=== PATIENT | male | born 1970 | race Caucasian/White ===

== ENCOUNTER 2021-02-16 21:03 | Inpatient (IN) ==
[2021-02-16 21:45] LABS: Hematocrit (blood only) 38.5 % (42-52); Hemoglobin 13.6 g/dL (14.0-18.0); Mean Corpuscular Hemoglobin 28.6 pg (25-34); Mean Corpuscular Hgb Conc 35.3 g/dL (32-36); Mean Corpuscular Volume 80.9 fL (80-100); Mean Platelet Volume 11.4 fL (7.4-10.4); Platelet Count 158 K/uL (130-400); RDW Coefficient of Variation 13.1 % (11.5-14.5); RDW Standard Deviation 39.3 fL (36.4-46.3); Red Blood Count 4.76 M/uL (4.7-6.1)
[2021-02-16 22:04] LABS: Alanine Aminotransferase 76 U/L (12-78); Albumin Level 2.8 gm/dl (3.4-5.0); Aspartate Aminotransferase 146 U/L (15-37); BUN Creatinine Ratio 14.6 (10-20); Blood Urea Nitrogen 14 mg/dl (7-18); Calcium 8.7 mg/dl (8.5-10.1); Carbon Dioxide 21 mmol/L (21-32); Chloride 91 mmol/L (98-107); Creatinine Clr Calc Pharmacy 114.6 ml/min; Est GFR (African American) 103.9 ml/min; Est GFR (Non-African American) 89.7 ml/min; Glucose 230 mg/dl (70-99); Potassium 3.4 mmol/L (3.5-5.1); Sodium 128 mmol/L (136-145)
[2021-02-16 22:07] LABS: Albumin Globulin Ratio 0.6 (0.9-2); Alkaline Phosphatase 72 U/L (45-117); Bilirubin,Total 0.8 mg/dl (0.2-1); Globulin 4.3 gm/dl (2.5-4.0); Total Protein 7.1 gm/dl (6.4-8.2)
[2021-02-16] MEDS ORDERED: KETOROLAC TROMETHAMINE 15 MG/ML VIAL IV STA (22:07)
[2021-02-16] MEDS ORDERED: ACETAMINOPHEN 500 MG TAB PO STA (22:07)
[2021-02-16] MEDS ORDERED: dexAMETHasone**PF** 10 MG/ML VIAL IV ONE (22:07)
[2021-02-16 22:15] LABS: Immature Granulocytes # (auto) 0.02 K/uL (0.00-0.02); Immature Granulocytes % (auto) 0.3 %; Lymphocytes # (auto) 0.41 K/uL (1.2-3.4); Lymphocytes % (auto) 6.5 %; Monocytes # (auto) 0.46 K/uL (0.11-0.59); Monocytes % (auto) 7.3 %; Neutrophils # (auto) 5.41 K/uL (1.4-6.5); Neutrophils % (auto) 85.9 %; Polychromasia 1+
[2021-02-16] MEDS ORDERED: SODIUM CHLORIDE 0.9% 1000ML 1,000 ML IV SCH (22:15)
[2021-02-16 22:18] LABS: Magnesium 2.4 mg/dl (1.8-2.4)
[2021-02-16 22:25] LABS: INR 1.1 (0.9-1.1); Partial Thromboplastin Ratio 1.2; Prothrombin Time 11.1 Seconds (9.0-12.0)
[2021-02-16 22:29] LABS: Troponin I < 0.015 ng/ml (0-0.045)
--- NOTE | 2021-02-16 23:13 | Emergency Department Note ---
History of Present Illness General Chief complaint: Illness Stated complaint: ILLNESS Time Seen by Provider: 02/16/21 21:48 History of Present Illness Maximum Pain Intensity: 6 This 50-year-old unvaccinated for COVID-19 presents to the ER complaining of flu like illness Location: Generalized Quality: Hard to breathe Severity: Moderate Duration: Past few days Timing: Started 8 days ago Context: Patient's pulse ox dropped below 90 and came in Modifying factors: better with rest; worse with activity patient states he bought a home pulse ox monitor and notices pulse ox is low as he is having problems breathing. Patient complains of fever, chills, body aches difficulty breathing and coughing. Patient denies abdominal pain, vomiting, diarrhea. Home Medications Medication Instructions Recorded Confirmed Type multivitamin (Daily Multi-Vitamin) 1 tab PO DAILY 12/22/18 02/16/21 History hydrochlorothiazide 25 mg tablet 25 mg PO DAILY #90 tab 12/22/20 02/16/21 Rx Allergies Allergy/AdvReac Type Severity Reaction Status Date / Time levofloxacin Allergy Unknown Unknown Verified 02/16/21 22:51 Past Med/Surg History Medical History (Updated 02/16/21 @ 23:13 by Holli Hernandez PA-C) High blood pressure Surgical History (Updated 02/16/21 @ 23:06 by Holli Hernandez PA-C) No pertinent past surgical history Social History Smoking Status: Never smoker Feels Safe at Home: Yes Review of Systems A total of 10 systems reviewed and were otherwise negative Physical Exam Vital Signs Vital Signs - 24 hr 02/16/21 21:30 02/16/21 21:35 02/16/21 21:40 Temperature 39.3 C H Temperature Source Oral Pulse Rate 119 H 118 H 119 H Pulse Rate from SpO2 Sensor 118 H 119 H Respiratory Rate 20 Blood Pressure 142/98 H Blood Pressure Mean 112 Pulse Oximetry 90 93 92 Oxygen Delivery Method Room Air Sepsis Recent Fever Within 48 Hours Yes Sepsis New/Unexplained Change in Mental Status N/A Sepsis Action Taken by Nursing No Action Required 02/16/21 21:50 02/16/21 22:00 02/16/21 22:10 Temperature Temperature Source Pulse Rate 117 H 117 H 117 H Pulse Rate from SpO2 Sensor 117 H 118 H 118 H Respiratory Rate Blood Pressure Blood Pressure Mean Pulse Oximetry 94 93 94 Oxygen Delivery Method Sepsis Recent Fever Within 48 Hours Sepsis New/Unexplained Change in Mental Status Sepsis Action Taken by Nursing 02/16/21 22:20 02/16/21 22:30 02/16/21 22:40 Temperature Temperature Source Pulse Rate 116 H 114 H 117 H Pulse Rate from SpO2 Sensor 116 H 115 H 116 H Respiratory Rate 24 Blood Pressure Blood Pressure Mean Pulse Oximetry 93 92 93 Oxygen Delivery Method Sepsis Recent Fever Within 48 Hours Sepsis New/Unexplained Change in Mental Status Sepsis Action Taken by Nursing 02/16/21 22:50 02/16/21 23:00 02/16/21 23:30 Temperature Temperature Source Pulse Rate 112 H 112 H 112 H Pulse Rate from SpO2 Sensor 112 H 112 H 111 H Respiratory Rate 31 H 20 Blood Pressure Blood Pressure Mean Pulse Oximetry 92 92 95 Oxygen Delivery Method Sepsis Recent Fever Within 48 Hours Sepsis New/Unexplained Change in Mental Status Sepsis Action Taken by Nursing VITALS: Vitals are noted on the nurse's note and reviewed by myself. Vital signs sats 92% on nasal cannula. GENERAL: White male ill-appearing, SKIN: The skin was without rashes, erythema, edema, or bruising. There is no tenting of the skin. Capillary reflex less than 2 seconds. HEAD: Normocephalic atraumatic. EARS: External auditory canals clear, tympanic membranes pearly lopez without erythema or effusion bilaterally. EYES: Pupils equal round and reactive to light and accommodation. Conjunctivae without injection, sclerae without icterus. Extraocular movements intact. NOSE: Patent, turbinates without inflammation or discharge. No sinus tenderness. MOUTH: Mucous membranes mildly dry. Pharynx without erythema or exudate. Uvula midline. Airway patent. Tongue does not deviate. NECK: Supple without nuchal rigidity. No lymphadenopathy. No thyromegaly. Cervical spine is nontender. No JVD. HEART: Regular rate and rhythm LUNGS: Mild diffuse end expiratory wheezes, without rales or rhonchi. No retractions or accessory muscle use. ABDOMEN: Positive bowel sounds x 4. Normal tympanic percussion. Soft, nontender, without masses or organomegaly. Sellers sign negative. No guarding or rebound tenderness. No CVA tenderness MUSCULOSKELETAL: No muscle atrophy, erythema, or edema noted. NEURO: Patient was alert and oriented to person place and time. Normal sensation to light and sharp touch. No focal neurological deficits. Course Administered Medications Discontinued Medications Acetaminophen (Acetaminophen 500 Mg Tab) 1,000 mg PO NOW STA Stop: 02/16/21 22:08 Last Admin: 02/16/21 22:50 Dose: 1,000 mg Documented by: [id number] Dexamethasone Sodium Phosphate (DexamethasonePf 10 Mg/Ml Vial) 6 mg IV NOW ONE Stop: 02/16/21 22:08 Last Admin: 02/16/21 22:50 Dose: 6 mg Documented by: [id number] Sodium Chloride (Nss 1000ml) 1,000 mls @ 999 mls/hr IV .Q1H1M GAURAV Stop: 02/16/21 23:15 Last Admin: 02/16/21 22:50 Dose: 999 mls/hr Documented by: [id number] Ketorolac Tromethamine (Ketorolac Tromethamine 15 Mg/Ml Vial) 10 mg IV NOW STA Stop: 02/16/21 22:08 Last Admin: 02/16/21 22:50 Dose: 10 mg Documented by: [id number] Medical Decision Making Medical Records Attestation: I reviewed the patient's medical records. Home Medications Current Medication List: was personally reviewed by me Laboratory Data Attestation: I reviewed the patient's lab results. Result diagrams: 02/16/21 21:11 02/16/21 21:11 Lab Results 02/16/21 02/16/21 02/16/21 Range/Units 21:11 21:11 21:18 WBC 6.30 (4.8-10.8) K/uL RBC 4.76 (4.7-6.1) M/uL Hgb 13.6 L (14.0-18.0) g/dL Hct 38.5 L (42-52) % MCV 80.9 (80-100) fL MCH 28.6 (25-34) pg MCHC 35.3 (32-36) g/dL RDW Std Deviation 39.3 (36.4-46.3) fL RDW Coeff of William 13.1 (11.5-14.5) % Plt Count 158 (130-400) K/uL MPV 11.4 H (7.4-10.4) fL Immature Gran % (Auto) 0.3 % Neut % (Auto) 85.9 % Lymph % (Auto) 6.5 % [place] % (Auto) 7.3 % Eos % (Auto) 0.0 % Baso % (Auto) 0.0 % Neut # (Auto) 5.41 (1.4-6.5) K/uL Lymph # (Auto) 0.41 L (1.2-3.4) K/uL [place] # (Auto) 0.46 (0.11-0.59) K/uL Eos # (Auto) 0.00 (0-0.5) K/uL Baso # (Auto) 0.00 (0-0.2) K/uL Immature Gran # (Auto) 0.02 (0.00-0.02) K/uL Polychromasia 1+ PT 11.1 (9.0-12.0) Seconds INR 1.1 (0.9-1.1) APTT 32.0 H (21.0-31.0) Seconds PTT Ratio 1.2 Sodium 128 L (136-145) mmol/L Potassium 3.4 L (3.5-5.1) mmol/L Chloride 91 L (98-107) mmol/L Carbon Dioxide 21 (21-32) mmol/L Anion Gap 15.0 H (3-11) BUN 14 (7-18) mg/dl Creatinine 0.99 (0.6-1.4) mg/dl Est Cr Clr Drug Dosing 114.6 ml/min Est GFR ( Amer) 103.9 ml/min Est GFR (Non-Af Amer) 89.7 ml/min BUN/Creatinine Ratio 14.6 (10-20) Glucose 230 H (70-99) mg/dl Lactate (0.4-2.0) mmol/L Calcium 8.7 (8.5-10.1) mg/dl Magnesium 2.4 (1.8-2.4) mg/dl Total Bilirubin 0.8 (0.2-1) mg/dl AST 146 H (15-37) U/L ALT 76 (12-78) U/L Alkaline Phosphatase 72 (45-117) U/L Troponin I < 0.015 (0-0.045) ng/ml Total Protein 7.1 (6.4-8.2) gm/dl Albumin 2.8 L (3.4-5.0) gm/dl Globulin 4.3 H (2.5-4.0) gm/dl Albumin/Globulin Ratio 0.6 L (0.9-2) COVID-19 Eval Order SARS-CoV-2 (PCR) (Negative) 02/16/21 02/16/21 02/16/21 Range/Units 21:18 21:18 22:40 WBC (4.8-10.8) K/uL RBC (4.7-6.1) M/uL Hgb (14.0-18.0) g/dL Hct (42-52) % MCV (80-100) fL MCH (25-34) pg MCHC (32-36) g/dL RDW Std Deviation (36.4-46.3) fL RDW Coeff of William (11.5-14.5) % Plt Count (130-400) K/uL MPV (7.4-10.4) fL Immature Gran % (Auto) % Neut % (Auto) % Lymph % (Auto) % [place] % (Auto) % Eos % (Auto) % Baso % (Auto) % Neut # (Auto) (1.4-6.5) K/uL Lymph # (Auto) (1.2-3.4) K/uL [place] # (Auto) (0.11-0.59) K/uL Eos # (Auto) (0-0.5) K/uL Baso # (Auto) (0-0.2) K/uL Immature Gran # (Auto) (0.00-0.02) K/uL Polychromasia PT (9.0-12.0) Seconds INR (0.9-1.1) APTT (21.0-31.0) Seconds PTT Ratio Sodium (136-145) mmol/L Potassium (3.5-5.1) mmol/L Chloride (98-107) mmol/L Carbon Dioxide (21-32) mmol/L Anion Gap (3-11) BUN (7-18) mg/dl Creatinine (0.6-1.4) mg/dl Est Cr Clr Drug Dosing ml/min Est GFR ( Amer) ml/min Est GFR (Non-Af Amer) ml/min BUN/Creatinine Ratio (10-20) Glucose (70-99) mg/dl Lactate 1.3 (0.4-2.0) mmol/L Calcium (8.5-10.1) mg/dl Magnesium (1.8-2.4) mg/dl Total Bilirubin (0.2-1) mg/dl AST (15-37) U/L ALT (12-78) U/L Alkaline Phosphatase (45-117) U/L Troponin I (0-0.045) ng/ml Total Protein (6.4-8.2) gm/dl Albumin (3.4-5.0) gm/dl Globulin (2.5-4.0) gm/dl Albumin/Globulin Ratio (0.9-2) COVID-19 Eval Order Covid19 at [facility] SARS-CoV-2 (PCR) POSITIVE A* (Negative) Imaging Data Attestation: I personally reviewed and interpreted this imaging study as follows: MDM Narrative Prior records/ancillary studies reviewed. Triage Nursing notes reviewed. Additional history obtained from nursing. The patient's history was concerning for fever. Differential diagnosis: Etiologies such as viral syndrome, otitis, pharyngitis, pneumonia, influenza, meningitis, urinary tract infection, sepsis, bacteremia, as well as others were entertained. Physical examination: As above ER treatment provided: An order was placed for continuous cardiac monitoring. The monitor shows a rate of 60-1 50 with a sinus rhythm. IV fluids, Tylenol, Toradol, Decadron On reassessment the patient felt better. Diagnostics interpreted by me: ECG: Ordered for dyspnea EKG: I think arrhythmia is unlikely. EKG shows normal sinus rhythm with no interval abnormalities such as QT prolongation or WPW. There are no findings to suggest Brugada syndrome. Cardiac monitoring in the emergency department reveals no tachycardic or bradycardic dysrhythmia. Hypertrophic cardiomyopathy was considered but there are no clear historical elements pointing toward this. EKG is not suggestive. The QRS voltage is not extremely large and there are no suggestive Q waves. The labs revealed no worrisome leukocytosis Blood cultures pending = covid Imaging studies: Chest x-ray concerning for multifocal pneumonia most consistent with Covid Consultation: A consultation was placed with hospitalist. The case was discussed and diagnostics were reviewed. The patient was evaluated in the ER for further treatment. This appears to be consistent with Covid pneumonia who is hypoxic on room air. Patient is given Decadron. Has been sick for 8 days. Medicine is consulted. He will be admitted. Patient is agreeable. By the evaluation outlined above emergent etiologies such as otitis, pharyngitis, meningitis, urinary tract infection, sepsis, bacteremia, as well as others were deemed relatively unlikely. The pt informed about the findings as listed above. All questions were answered and pleased with the treatment. The chart was completed utilizing [employer] Speech voice recognition software. Grammatical errors, random word insertions, pronoun errors, and incomplete sentences are an occassional consequence of this system due to software limitations, ambient noise, and hardware issues. Any formal questions or concerns about the content, text, or information contained within the body of this dictation should be directly addressed to the physician seed laboratory assistant for clarification. Impression & Plan COVID-19 Discharge Plan Visit Data Chief Complaint: Illness Stated Complaint: ILLNESS ED Provider: Howard Sharif ED Midlevel Provider: Holli Hernandez Discharge Problem: COVID-19 Patient Disposition: Admitted As Inpatient Condition: Fair Forms Stand Alone Forms: [facility] Prescriptions Prescriptions: No Action hydrochlorothiazide 25 mg tablet 25 mg PO DAILY Qty: 90 RF: 3 multivitamin [Daily Multi-Vitamin] tablet 1 tab PO DAILY RF: 0 Referrals Referrals: Colby Sanchez Jr, [Physician] -
[2021-02-17] MEDS ORDERED: POTASSIUM CHLORIDE CRTAB 20 MEQ TABCR PO STA (00:44)
[2021-02-17] MEDS ORDERED: POTASSIUM CHLORIDE CRTAB 20 MEQ TABCR PO SCH (00:44)
--- NOTE | 2021-02-17 00:45 | History & Physical Report ---
Date of Service February 17, 2021 Assessment & Plan (1) COVID-19: Plan: 50-year-old male with history of hypertension, most likely undiagnosed diabetes presenting with with COVID-19 pneumonia and hypoxia. Patient has been experiencing symptoms for approximately 8 days. Saturations 90% on arrival, now improved to 95% on 4 L nasal cannula. Risk factors for severe disease include underlying hypertension and possibly diabetes. Admit to medical Maintain isolation precautions for COVID-19 Dexamethasone 6 mg IV daily Supplemental oxygen as needed to maintain saturations greater than 92% Patient prefers to hold off on remdesivir at this time Lovenox 40 twice daily Tylenol, Tessalon, Mucinex Continue to monitor (2) High blood pressure: Plan: Patient with elevated blood pressure = 150/95 currently Continue hydrochlorothiazide 25 mg p.o. daily Continue to monitor (3) Elevated blood sugar: Plan: Patient reports that he checks his blood sugar occasionally at home and it is often in the upper 100s and sometimes over 200. He states he is quite thirsty Fingerstick with insulin coverage Check hemoglobin A1c (4) Nephrolithiasis: Plan: Patient with history of uric acid nephrolithiasis Continue hydrochlorothiazide History of Present Illness Chief Complaint: Covid-19 PNA, hypoxia Primary Care Provider: Diana Blackmon MD Shine Thomas is a 50yo male with history of hypertension, elevated blood sugar readings (no formal diagnosis of diabetes as of yet, patient states he monitors his sugars at home and sometimes are over 200) as well as uric acid nephrolithiasis presenting with COVID-19 pneumonia. Patient states that he developed symptoms consisting of cough, shortness of breath, fever, nausea, vomiting, body aches and diarrhea approximately 8 days ago. Patient has been monitoring his saturations at home and they have been low in the upper 80s. Upon arrival patient febrile at 39.3, tachycardic at 112, respiratory rate of 20 saturating 90% on room air. Covid test is POSITIVE ER course: Tylenol, dexamethasone, Toradol, normal saline Allergies Allergy/AdvReac Type Severity Reaction Status Date / Time levofloxacin Allergy Unknown Unknown Verified 02/16/21 22:51 Home Medications Medication Instructions Recorded Confirmed Type multivitamin (Daily Multi-Vitamin) 1 tab PO DAILY 12/22/18 02/16/21 History hydrochlorothiazide 25 mg tablet 25 mg PO DAILY #90 tab 12/22/20 02/16/21 Rx Past Med/Surg History Medical History (Updated 02/17/21 @ 03:07 by La Collazo DO) High blood pressure Surgical History (Updated 02/16/21 @ 23:06 by Holli Hernandez PA-C) No pertinent past surgical history Social History Smoking Status: Never smoker Do You Dip or Chew Tobacco: No; Hx Alcohol Use: Yes Hx Substance Use: No Preferred Language: Libyan Communication Ability: Effective Appraiser Required: No Beliefs That Will Affect Care: None Current Living Situation: Alone Other Information That Helps Us Care for You: No Feels Safe at Home: Yes Safety Concerns: Feels Safe At This Time Assistive Devices: Glasses and Oxygen - Continuous Review of Systems Review of Systems: All systems reviewed & are unremarkable except as noted in HPI & below + Fever, chills, body aches, cough, shortness of breath, nausea, vomiting, diarrhea Physical Exam Physical Exam: General: patient resting comfortably, NAD, non-toxic in appearance, AA&O x 4, + cough Skin: warm, dry, intact, no rashes or lesions HEENT: NC/AT, PERRL, EOMI, anicteric sclera, conjunctiva without injection, external ear normal to inspection and nontender, nares patent, moist mucus membranes, dentition intact, no oropharyngeal lesions, neck supple, trachea midline, no LAD, no thyromegaly, no JVD Heart: +S1/S2, regular, no m/r/g Lungs: equal air entry bilaterally, no rales/rhonchi/wheezes Abd: +BS, soft, NT/ND, no masses/organomegaly/ascites Ext: warm, 2+ pulses in UE/LE bilaterally, no clubbing/cyanosis or edema Neuro: nonfocal, patient AA&O x 4, speech intact, no facial droop, moving all extremities on command with equal strength 5/5 Results & Data Results & Data (MN) Vital Signs (Past 12 Hours) Vital Signs Temp Pulse Resp BP Pulse Ox 02/16/21 23:30 112 H 20 95 02/16/21 23:00 112 H 31 H 92 02/16/21 22:50 112 H 92 02/16/21 22:40 117 H 24 93 02/16/21 22:30 114 H 92 02/16/21 22:20 116 H 93 02/16/21 22:10 117 H 94 02/16/21 22:00 117 H 93 02/16/21 21:50 117 H 94 02/16/21 21:40 119 H 92 02/16/21 21:35 118 H 93 02/16/21 21:30 39.3 C H 119 H 20 142/98 H 90 Laboratory Results Laboratory Results WBC 6.30 K/uL (4.8-10.8) 02/16/21 21:11 RBC 4.76 M/uL (4.7-6.1) 02/16/21 21:11 Hgb 13.6 g/dL (14.0-18.0) L 02/16/21 21:11 Hct 38.5 % (42-52) L 02/16/21 21:11 MCV 80.9 fL (80-100) 02/16/21 21:11 MCH 28.6 pg (25-34) 02/16/21 21:11 MCHC 35.3 g/dL (32-36) 02/16/21 21:11 RDW Std Deviation 39.3 fL (36.4-46.3) 02/16/21 21:11 RDW Coeff of William 13.1 % (11.5-14.5) 02/16/21 21:11 Plt Count 158 K/uL (130-400) 02/16/21 21:11 MPV 11.4 fL (7.4-10.4) H 02/16/21 21:11 Immature Gran % (Auto) 0.3 % 02/16/21 21:11 Neut % (Auto) 85.9 % 02/16/21 21:11 Lymph % (Auto) 6.5 % 02/16/21 21:11 [place] % (Auto) 7.3 % 02/16/21 21:11 Eos % (Auto) 0.0 % 02/16/21 21:11 Baso % (Auto) 0.0 % 02/16/21 21:11 Neut # (Auto) 5.41 K/uL (1.4-6.5) 02/16/21 21:11 Lymph # (Auto) 0.41 K/uL (1.2-3.4) L 02/16/21 21:11 [place] # (Auto) 0.46 K/uL (0.11-0.59) 02/16/21 21:11 Eos # (Auto) 0.00 K/uL (0-0.5) 02/16/21 21:11 Baso # (Auto) 0.00 K/uL (0-0.2) 02/16/21 21:11 Immature Gran # (Auto) 0.02 K/uL (0.00-0.02) 02/16/21 21:11 Polychromasia 1+ 02/16/21 21:11 PT 11.1 Seconds (9.0-12.0) 02/16/21:18 INR 1.1 (0.9-1.1) 02/16/21 21:18 APTT 32.0 Seconds (21.0-31.0) H 02/16/21 21:18 PTT Ratio 1.2 02/16/21 21:18 Sodium 128 mmol/L (136-145) L 02/16/21 21:11 Potassium 3.4 mmol/L (3.5-5.1) L 02/16/21 21:11 Chloride 91 mmol/L (98-107) L 02/16/21 21:11 Carbon Dioxide 21 mmol/L (21-32) 02/16/21 21:11 Anion Gap 15.0 (3-11) H 02/16/21 21:11 BUN 14 mg/dl (7-18) 02/16/21 21:11 Creatinine 0.99 mg/dl (0.6-1.4) 02/16/21 21:11 Est Cr Clr Drug Dosing 114.6 ml/min 02/16/21 21:11 Est GFR ( Amer) 103.9 ml/min 02/16/21 21:11 Est GFR (Non-Af Amer) 89.7 ml/min 02/16/21 21:11 BUN/Creatinine Ratio 14.6 (10-20) 02/16/21 21:11 Glucose 230 mg/dl (70-99) H 02/16/21 21:11 Lactate 1.3 mmol/L (0.4-2.0) 02/16/21 22:40 Calcium 8.7 mg/dl (8.5-10.1) 02/16/21 21:11 Magnesium 2.4 mg/dl (1.8-2.4) 02/16/21 21:11 Total Bilirubin 0.8 mg/dl (0.2-1) 02/16/21 21:11 AST 146 U/L (15-37) H 02/16/21 21:11 ALT 76 U/L (12-78) 02/16/21 21:11 Alkaline Phosphatase 72 U/L (45-117) 02/16/21 21:11 Lactate Dehydrogenase 1035 U/L (87-241) H 02/16/21 21:11 Troponin I < 0.015 ng/ml (0-0.045) 02/16/21 21:11 C-Reactive Protein 25.30 mg/dl (0-0.29) H 02/16/21 21:11 NT-Pro-B Natriuret Pep 84 pg/ml (0-450) 02/16/21 21:11 Total Protein 7.1 gm/dl (6.4-8.2) 02/16/21 21:11 Albumin 2.8 gm/dl (3.4-5.0) L 02/16/21 21:11 Globulin 4.3 gm/dl (2.5-4.0) H 02/16/21 21:11 Albumin/Globulin Ratio 0.6 (0.9-2) L 02/16/21 21:11 COVID-19 Eval Order Covid19 at [facility] 02/16/21 21:18 SARS-CoV-2 (PCR) POSITIVE (Negative) A* 02/16/21 21:18 Diagnostic Findings Chest x-ray: By my interpretationpatient with diffuse bilateral airspace opacities worse in lower lung ge[place] Code Status & VTE Plan VTE Prophylaxis Plan VTE Prophylaxis will be ordered: Yes PG Care Time/CCT Total # of Minutes Spent Total Time Spent with Patient: Total time spent is greater than 50% in coordination of care (as documented) at patient's floor/unit and/or counseling patient: Coding Level of Care Code 16626 Initial Inpt Care Lvl 2 Diagnoses COVID-19 U07.1 High blood pressure I10 Elevated blood sugar R73.9 Nephrolithiasis N20.0
[2021-02-17] MEDS ORDERED: SODIUM CHLORIDE 0.9% 1000ML 1,000 ML IV SCH ×2 (01:59→15:00)
[2021-02-17] MEDS ORDERED: ONDANSETRON INJ 2 MG/ML 2 ML VIAL IV PRN (01:59)
[2021-02-17] MEDS ORDERED: ACETAMINOPHEN 325 MG TAB PO PRN (01:59)
[2021-02-17] MEDS ORDERED: BENZONATATE 100 MG CAPSULE PO PRN (01:59)
[2021-02-17 02:22] LABS: NT Pro B Type Natriuretic Pept 84 pg/ml (0-450)
[2021-02-17] MEDS ORDERED: GLUCAGON FOR INJ 1 MG VIAL IM PRN (02:45)
[2021-02-17] MEDS ORDERED: GLUCOSE 10 TABS/TUBE PO PRN (02:45)
[2021-02-17] MEDS ORDERED: CARBOHYDRATES FOR HYPOGLYCEMIA PO PRN (02:45)
[2021-02-17] MEDS ORDERED: DEXTROSE 50% 50 ML SYRINGE IV PRN (02:45)
[2021-02-17] MEDS ORDERED: GLUCOSE 40% GEL 15 GM TUBE PO PRN (02:45)
[2021-02-17] MEDS: INSULIN ASPART 100 UNITS/ML 3 ML PEN SC SCH ×5 (03:09→21:20)
[2021-02-17 07:26] LABS: Estimated Average Glucose 217 mg/dl; Hemoglobin A1C 9.2 % (4.5-5.6)
[2021-02-17 07:37] LABS: Appearance Urine Clear (Clear); Bacteria Urine Automated Negative (Negative); Bilirubin Urine Negative (Negative); Blood Urine 2+ (Negative); Color Urine Yellow; Epithelial Cell Urine Auto 0-5 /lpf (0-5); Glucose Urine UA 2+ (Negative); Ketones Urine 4+ (Negative); Leukocyte Esterase Urine Negative (Negative); Nitrite Urine Negative (Negative); Protein Urine 2+ (Negative); RBC Urine Automated 0-4 /hpf (0-4); Specific Gravity Urine 1.021 (1.000-1.030); Urobilinogen Urine Negative (Negative); WBC Urine Automated 0 /hpf (0-5)
--- NOTE | 2021-02-17 08:03 | XRay Report ---
XR chest 1V portable HISTORY: SEPSIS COMPARISON: None. FINDINGS: No pneumothorax. No pleural effusions. The heart is normal in size. Multifocal patchy airsp yunior opacities seen within the lungs most pronounced within the lower lung zones. This is consistent w ith a viral pneumonia. IMPRESSION: Multifocal bilateral airspace opacities consistent with a viral pneumonia. ACT 112: Negative or not required by law. Electronically signed by: Nawaf Mckeon M.D. 02/17/2021 8:01 AM
[2021-02-17] MEDS ORDERED: INSULIN GLARGINE SOLOSTAR 100 UNITS/ML 3 ML PEN SC SCH (09:00)
[2021-02-17] MEDS ORDERED: ENOXAPARIN INJ 40 MG/0.4 ML SYR SQ SCH (09:00)
[2021-02-17] MEDS: hydroCHLOROthiazide 25 MG TAB PO SCH (09:30)
[2021-02-17] MEDS: guaiFENesin 600 MG TABCR PO SCH ×2 (09:31→20:01)
[2021-02-17] MEDS: ENOXAPARIN INJ 60 MG/0.6 ML SYR SQ SCH ×2 (09:32→20:00)
[2021-02-17] MEDS: dexAMETHasone 6 MG in SYRINGE 0 ML IV SCH (10:14)
[2021-02-17] MEDS ORDERED: ALBUTEROL HFA 8 GM INHALER INH ONE (13:29)
[2021-02-17 14:20] LABS: BUN Creatinine Ratio 17.3 (10-20); Calcium 8.2 mg/dl (8.5-10.1); Est GFR (African American) 117.2 ml/min; Est GFR (Non-African American) 101.1 ml/min; Potassium 3.8 mmol/L (3.5-5.1)
[2021-02-17 14:41] LABS: Beta-Hydroxybutyrate 34.07 mg/dl (0.2-2.81)
[2021-02-17] MEDS ORDERED: REMDESIVIR 200 MG in SODIUM CHLORIDE 0.9% 210 ML IV ONE (15:15)
[2021-02-17] MEDS ORDERED: SODIUM CHLORIDE 0.9% 10ML FLUSH IV SCH (17:15)
--- NOTE | 2021-02-17 17:48 | Electrocardiogram Report ---
Test Reason : Blood Pressure : / mmHG Vent. Rate : 123 BPM Atrial Rate : 123 BPM P-R Int : 142 ms QRS Dur : 090 ms QT Int : 322 ms P-R-T Axes : 032 066 046 degrees QTc Int : 460 ms Sinus tachycardia Otherwise normal ECG No previous ECGs available Confirmed by Diaz Hauser ([id number]) on 02/17/2021 5:48:03 PM Referred By: REFERRED SELF Confirmed By:Bryan Hauser
--- NOTE | 2021-02-17 19:50 | Hospitalist Progress Note ---
Date of Service February 17, 2021 Assessment & Plan (1) Pneumonia due to COVID-19 virus: (2) Acute respiratory failure with hypoxia: (3) Diabetes mellitus type 2, uncontrolled: (4) Rhabdomyolysis due to COVID-19: (5) Hyponatremia: (6) Elevated C-reactive protein (CRP): (7) Hypokalemia: (8) DVT prophylaxis: Plan: 1. 1 L of NS for rhabdo. 2. Initiate Remdesivir 200mg today, then 100mg daily days 2-5. 3. discussed proning, flutter, incentive. 4. serial labs. 5. discussed DM diagnosis. 6. start lantus BID; adjust novolog. offered to update family - he declined Admission and Anticipated Discharge Date Admission Date: February 17, 2021 Subjective patient reports fatigue, poor appetite, impaired taste/smell, cough with mild sputum, dyspnea on exertion and simply feeling poorly. we discussed his new dx of diabetes. he had declined Remdesivir at admission - we discussed risks/benefits - he is willing to initiate. Physical Exam Physical Exam: gen - obese, NAD, coughing neck - no JVD mouth - MM dry heart - RRR, s1 s2, no murmur lungs - bibasilar rales, minimal end-exp wheeze, no increased work of breathing abd - soft NT ND BS+ ext - no edema Results & Data Results & Data ([facility]) Vital Signs (Past 12 Hours) Vital Signs Temp Pulse Resp BP Pulse Ox 02/17/21 18:36 37 C 02/17/21 14:45 37.0 C 96 H 18 147/84 H 97 02/17/21 13:59 94 H 20 96 Laboratory Results Laboratory Results - last 24 hr 02/16/21 02/16/21 02/16/21 21:11 21:11 21:11 WBC 6.30 RBC 4.76 Hgb 13.6 L Hct 38.5 L MCV 80.9 MCH 28.6 MCHC 35.3 RDW Std Deviation 39.3 RDW Coeff of William 13.1 Plt Count 158 MPV 11.4 H Immature Gran % (Auto) 0.3 Neut % (Auto) 85.9 Lymph % (Auto) 6.5 [place] % (Auto) 7.3 Eos % (Auto) 0.0 Baso % (Auto) 0.0 Neut # (Auto) 5.41 Lymph # (Auto) 0.41 L [place] # (Auto) 0.46 Eos # (Auto) 0.00 Baso # (Auto) 0.00 Immature Gran # (Auto) 0.02 Polychromasia 1+ PT INR APTT PTT Ratio Sodium 128 L Potassium 3.4 L Chloride 91 L Carbon Dioxide 21 Anion Gap 15.0 H BUN 14 Creatinine 0.99 Est Cr Clr Drug Dosing 114.6 Est GFR ( Amer) 103.9 Est GFR (Non-Af Amer) 89.7 BUN/Creatinine Ratio 14.6 Glucose 230 H POC Glucose Estimat Average Glucose 217 Hemoglobin A1c 9.2 H Lactate Calcium 8.7 Magnesium 2.4 Total Bilirubin 0.8 AST 146 H ALT 76 Alkaline Phosphatase 72 Lactate Dehydrogenase Total Creatine Kinase Troponin I < 0.015 C-Reactive Protein 25.30 H NT-Pro-B Natriuret Pep 84 Total Protein 7.1 Albumin 2.8 L Globulin 4.3 H Albumin/Globulin Ratio 0.6 L Beta-Hydroxybutyric Acd Urine Color Urine Appearance Urine pH Ur Specific [place] Urine Protein Urine Glucose (UA) Urine Ketones Urine Blood Urine Nitrite Urine Bilirubin Urine Urobilinogen Ur Leukocyte Esterase Urine WBC (Auto) Urine RBC (Auto) U Hyaline Cast (Auto) U Epithel Cells (Auto) Urine Bacteria (Auto) COVID-19 Eval Order SARS-CoV-2 (PCR) 02/16/21 02/16/21 02/16/21 21:11 21:18 21:18 WBC RBC Hgb Hct MCV MCH MCHC RDW Std Deviation RDW Coeff of William Plt Count MPV Immature Gran % (Auto) Neut % (Auto) Lymph % (Auto) [place] % (Auto) Eos % (Auto) Baso % (Auto) Neut # (Auto) Lymph # (Auto) [place] # (Auto) Eos # (Auto) Baso # (Auto) Immature Gran # (Auto) Polychromasia PT 11.1 INR 1.1 APTT 32.0 H PTT Ratio 1.2 Sodium Potassium Chloride Carbon Dioxide Anion Gap BUN Creatinine Est Cr Clr Drug Dosing Est GFR ( Amer) Est GFR (Non-Af Amer) BUN/Creatinine Ratio Glucose POC Glucose Estimat Average Glucose Hemoglobin A1c Lactate Calcium Magnesium Total Bilirubin AST ALT Alkaline Phosphatase Lactate Dehydrogenase 1035 H Total Creatine Kinase Troponin I C-Reactive Protein NT-Pro-B Natriuret Pep Total Protein Albumin Globulin Albumin/Globulin Ratio Beta-Hydroxybutyric Acd Urine Color Urine Appearance Urine pH Ur Specific [place] Urine Protein Urine Glucose (UA) Urine Ketones Urine Blood Urine Nitrite Urine Bilirubin Urine Urobilinogen Ur Leukocyte Esterase Urine WBC (Auto) Urine RBC (Auto) U Hyaline Cast (Auto) U Epithel Cells (Auto) Urine Bacteria (Auto) COVID-19 Eval Order Covid19 at [facility] SARS-CoV-2 (PCR) 02/16/21 02/16/21 02/17/21 21:18 22:40 08:10 WBC RBC Hgb Hct MCV MCH MCHC RDW Std Deviation RDW Coeff of William Plt Count MPV Immature Gran % (Auto) Neut % (Auto) Lymph % (Auto) [place] % (Auto) Eos % (Auto) Baso % (Auto) Neut # (Auto) Lymph # (Auto) [place] # (Auto) Eos # (Auto) Baso # (Auto) Immature Gran # (Auto) Polychromasia PT INR APTT PTT Ratio Sodium Potassium Chloride Carbon Dioxide Anion Gap BUN Creatinine Est Cr Clr Drug Dosing Est GFR ( Amer) Est GFR (Non-Af Amer) BUN/Creatinine Ratio Glucose POC Glucose 307 H* Estimat Average Glucose Hemoglobin A1c Lactate 1.3 Calcium Magnesium Total Bilirubin AST ALT Alkaline Phosphatase Lactate Dehydrogenase Total Creatine Kinase Troponin I C-Reactive Protein NT-Pro-B Natriuret Pep Total Protein Albumin Globulin Albumin/Globulin Ratio Beta-Hydroxybutyric Acd Urine Color Urine Appearance Urine pH Ur Specific [place] Urine Protein Urine Glucose (UA) Urine Ketones Urine Blood Urine Nitrite Urine Bilirubin Urine Urobilinogen Ur Leukocyte Esterase Urine WBC (Auto) Urine RBC (Auto) U Hyaline Cast (Auto) U Epithel Cells (Auto) Urine Bacteria (Auto) COVID-19 Eval Order SARS-CoV-2 (PCR) POSITIVE A* 02/17/21 02/17/21 02/17/21 08:11 12:12 12:13 WBC RBC Hgb Hct MCV MCH MCHC RDW Std Deviation RDW Coeff of William Plt Count MPV Immature Gran % (Auto) Neut % (Auto) Lymph % (Auto) [place] % (Auto) Eos % (Auto) Baso % (Auto) Neut # (Auto) Lymph # (Auto) [place] # (Auto) Eos # (Auto) Baso # (Auto) Immature Gran # (Auto) Polychromasia PT INR APTT PTT Ratio Sodium Potassium Chloride Carbon Dioxide Anion Gap BUN Creatinine Est Cr Clr Drug Dosing Est GFR ( Amer) Est GFR (Non-Af Amer) BUN/Creatinine Ratio Glucose POC Glucose 323 H* 310 H* 323 H* Estimat Average Glucose Hemoglobin A1c Lactate Calcium Magnesium Total Bilirubin AST ALT Alkaline Phosphatase Lactate Dehydrogenase Total Creatine Kinase Troponin I C-Reactive Protein NT-Pro-B Natriuret Pep Total Protein Albumin Globulin Albumin/Globulin Ratio Beta-Hydroxybutyric Acd Urine Color Urine Appearance Urine pH Ur Specific [place] Urine Protein Urine Glucose (UA) Urine Ketones Urine Blood Urine Nitrite Urine Bilirubin Urine Urobilinogen Ur Leukocyte Esterase Urine WBC (Auto) Urine RBC (Auto) U Hyaline Cast (Auto) U Epithel Cells (Auto) Urine Bacteria (Auto) COVID-19 Eval Order SARS-CoV-2 (PCR) 02/17/21 02/17/21 02/17/21 13:26 17:23 Unknown WBC RBC Hgb Hct MCV MCH MCHC RDW Std Deviation RDW Coeff of William Plt Count MPV Immature Gran % (Auto) Neut % (Auto) Lymph % (Auto) [place] % (Auto) Eos % (Auto) Baso % (Auto) Neut # (Auto) Lymph # (Auto) [place] # (Auto) Eos # (Auto) Baso # (Auto) Immature Gran # (Auto) Polychromasia PT INR APTT PTT Ratio Sodium 131 L Potassium 3.8 Chloride 99 Carbon Dioxide 20 L Anion Gap 12.0 H BUN 15 Creatinine 0.89 Est Cr Clr Drug Dosing 125.0 Est GFR ( Amer) 117.2 Est GFR (Non-Af Amer) 101.1 BUN/Creatinine Ratio 17.3 Glucose 325 H* POC Glucose 280 H Estimat Average Glucose Hemoglobin A1c Lactate Calcium 8.2 L Magnesium Total Bilirubin AST 124 H ALT 76 Alkaline Phosphatase Lactate Dehydrogenase Total Creatine Kinase 2955 H Troponin I C-Reactive Protein NT-Pro-B Natriuret Pep Total Protein Albumin Globulin Albumin/Globulin Ratio Beta-Hydroxybutyric Acd 34.07 H Urine Color Yellow Urine Appearance Clear Urine pH 6.0 Ur Specific [place] 1.021 Urine Protein 2+ H Urine Glucose (UA) 2+ H Urine Ketones 4+ H Urine Blood 2+ H Urine Nitrite Negative Urine Bilirubin Negative Urine Urobilinogen Negative Ur Leukocyte Esterase Negative Urine WBC (Auto) 0 Urine RBC (Auto) 0-4 U Hyaline Cast (Auto) 1-5 U Epithel Cells (Auto) 0-5 Urine Bacteria (Auto) Negative COVID-19 Eval Order SARS-CoV-2 (PCR) PG Care Time/CCT Total # of Minutes Spent Total Time Spent with Patient: Total time spent is greater than 50% in coordination of care (as documented) at patient's floor/unit and/or counseling patient: Coding Level of Care Code None Diagnoses Pneumonia due to COVID-19 virus U07.1; J12.82 Acute respiratory failure with hypoxia J96.01 Diabetes mellitus type 2, uncontrolled E11.65 Rhabdomyolysis due to COVID-19 U07.1; M62.82 Hyponatremia E87.1 Elevated C-reactive protein (CRP) R79.82 Hypokalemia E87.6 DVT prophylaxis Z29.9
[2021-02-17] MEDS: INSULIN GLARGINE SOLOSTAR 100 UNITS/ML 3 ML PEN SC SCH (21:21)
[2021-02-18] MEDS ORDERED: PHARMACY GLYCEMIC MGMT CONSULT PRN (00:30)
[2021-02-18] MEDS: INSULIN ASPART 100 UNITS/ML 3 ML PEN SC SCH ×6 (01:38→21:28)
[2021-02-18 05:54] LABS: Hematocrit (blood only) 34.3 % (42-52); Hemoglobin 12.3 g/dL (14.0-18.0); Mean Corpuscular Hemoglobin 29.3 pg (25-34); Mean Corpuscular Hgb Conc 35.9 g/dL (32-36); Mean Corpuscular Volume 81.7 fL (80-100); Mean Platelet Volume 10.6 fL (7.4-10.4); Platelet Count 185 K/uL (130-400); RDW Coefficient of Variation 13.1 % (11.5-14.5); RDW Standard Deviation 39.6 fL (36.4-46.3); White Blood Count 9.43 K/uL (4.8-10.8)
[2021-02-18 06:13] LABS: Basophils # (auto) 0.01 K/uL (0-0.2); Basophils % (auto) 0.1 %; Immature Granulocytes # (auto) 0.07 K/uL (0.00-0.02); Immature Granulocytes % (auto) 0.7 %; Lymphocytes % (auto) 7.4 %; Monocytes # (auto) 0.72 K/uL (0.11-0.59); Monocytes % (auto) 7.6 %; Neutrophils # (auto) 7.93 K/uL (1.4-6.5); Neutrophils % (auto) 84.2 %
[2021-02-18 06:20] LABS: Albumin Level 2.2 gm/dl (3.4-5.0); BUN Creatinine Ratio 19.4 (10-20); Bilirubin Direct 0.1 mg/dl (0-0.2); Creatinine Clr Calc Pharmacy 137.4 ml/min; Est GFR (African American) 121.8 ml/min; Est GFR (Non-African American) 105.1 ml/min; Potassium 3.2 mmol/L (3.5-5.1)
[2021-02-18 06:26] LABS: Bilirubin,Total 0.5 mg/dl (0.2-1); Total Protein 5.8 gm/dl (6.4-8.2)
--- NOTE | 2021-02-18 09:07 | Pharmacy Report ---
Pharmacy Glycemic Short Note 2 - Date of Service February 18, 2021 - Glycemic Short BSG Results (Last 24 hours): 02/17/21 02/17/21 02/17/21 12:12 12:13 13:26 Glucose 325 H* POC Glucose 310 H* 323 H* 02/17/21 02/17/21 02/17/21 17:23 21:09 21:11 Glucose POC Glucose 280 H 313 H* 305 H* 02/18/21 02/18/21 02/18/21 00:00 01:36 04:42 Glucose POC Glucose 226 H 223 H 189 H 02/18/21 02/18/21 05:30 08:27 Glucose 179 H POC Glucose 197 H OUTPATIENT ANTIDIABETIC REGIMEN: * N/A * A1c = 9.2% on 02/16/21 which is diagnostic for diabetes ASSESSMENT: * 50yo male - newly diagnosed diabetes diabetes per A1c * Pt with SEVERE sustained hyperglycemia secondary to undiagnosed diabetes, illness (COVID), and high dose steroids with dexamethasone IV daily * Start weight based SQ basal bolus insulin regimen (Lantus + NovoLog) for baseline insulin resistance * Add weight based NPH for steroid induced hyperglycemia (0.4 units/kg) * Titrate based on BSG trends to achieve goal BSGs 110-140 mg/dl PLAN FOR INPATIENT GLYCEMIC CONTROL: * Basal insulin * Lantus 20 units SQ BID * Steroid induced hyperglycemia * NPH 40 units (~0.4 units/kg) SQ daily with dexamethasone * Bolus insulin * NovoLog per scale ACHS or Q6hrs while NPO * Goal Range: Low 100 mg/dL - High 140 mg/dL * Correction Factor: 20 mg/dL/unit * Nutritional / Prandial insulin per carb ratio of 1 unit per 7 grams CHO consumed PLAN FOR DISCHARGE: * A1c = 9.2% on 02/16/21 * Goal A1c < 7% based on age/co-morbidities * A1c is between 8% and 10% consider dual combination therapy * Metformin + additional agent listed below. * Metformin should be started at the time type 2 diabetes is diagnosed unless there are contraindications. Metformin is effective and safe, is inexpensive, and may reduce risk of cardiovascular events and . * Recommend starting: Metformin XR 500mg PO daily with evening meal. Typically the XR formulation of metformin is better tolerated than the immediate release formulation. Continue to titrate metformin dosing upwards as recommended. Dosage increases should be made in increments of 500 mg weekly, up to 2,000 mg/day PO, given in divided doses. Doses above 2000 mg/day may be better tolerated if divided and given 3 times per day with meals. Max: 2,550 mg/day PO, in divided doses * B12 supplementation may be necessary with mcc metformin use * Compelling need to minimize weight gain or promote weight loss: * GLP-1 receptor agonist: Decreases major adverse cardiovascular events, high efficacy, low hypo risk, weight loss, significant GI side effects (titrate low and slow) and risk of thyroid tumors, high cost * SGLT2 inhibitor: Decreases major adverse cardiovascular events, intermediate efficacy, low hypo risk, weight loss, /dehydration and risk of amputation (canagliflozin) side effects, high cost * Support Patient Self-Management * Healthy Lifestyle (diet, exercise, and smoking cessation) * Disease self-management (SMBG) * Prevention of complications (BP, Lipid goals, Immunizations) * Consider outpatient Diabetes Self-Management Education & Support
[2021-02-18] MEDS: INSULIN GLARGINE SOLOSTAR 100 UNITS/ML 3 ML PEN SC SCH ×2 (09:43→21:28)
[2021-02-18] MEDS: INSULIN HUMAN NPH SC SCH (09:43)
[2021-02-18] MEDS: ENOXAPARIN INJ 60 MG/0.6 ML SYR SQ SCH ×2 (09:47→21:27)
[2021-02-18] MEDS: guaiFENesin 600 MG TABCR PO SCH ×2 (09:48→21:27)
[2021-02-18] MEDS: dexAMETHasone 6 MG in SYRINGE 0 ML IV SCH (09:48)
[2021-02-18] MEDS: hydroCHLOROthiazide 25 MG TAB PO SCH (09:48)
[2021-02-18] MEDS: POTASSIUM CHLORIDE CRTAB 20 MEQ TABCR PO SCH ×3 (10:34→21:28)
[2021-02-18] MEDS: REMDESIVIR 100 MG in SODIUM CHLORIDE 0.9% 230 ML IV SCH (11:10)
[2021-02-18] MEDS: SODIUM CHLORIDE 0.9% 10ML FLUSH IV SCH (12:17)
--- NOTE | 2021-02-18 22:06 | Hospitalist Progress Note ---
Date of Service February 18, 2021 Assessment & Plan (1) Pneumonia due to COVID-19 virus: Plan: moderate disease with very high inflammatory markers. day #3 of dexamethasone 6mg IV. day #2 Remdesivir. cont pulm toilet, proning, etc. recheck CRP am. he is about 9 days into the illness. (2) Acute respiratory failure with hypoxia: Plan: 2nd to #1. no evidence of complicating CHF or bacterial superinfection. (3) Diabetes mellitus type 2, uncontrolled: Plan: new dx. adjust lantus. adjust novolog. a1c - 9.2%. will need DM education, etc. DM diet. (4) Rhabdomyolysis due to COVID-19: Plan: s/p 1 L of fluid yesterday. repeat CPK in am. (5) Hyponatremia: Plan: improving. now 134. bmp in am. was 2nd to HCTZ, poor oral intake, etc (6) Elevated C-reactive protein (CRP): Plan: 2nd to #1 repeat am (7) Hypokalemia: Plan: replace repeat level am (8) DVT prophylaxis: Plan: lovenox 50mg BID (~0.5mg/kg BID) Plan: updated pt's Aunt by phone this evening Admission and Anticipated Discharge Date Admission Date: February 17, 2021 Subjective pt feels similar or scantly better vs yesterday cough, dyspnea unchanged still poor appetite taste/smell impaired no chest pain no abd pain does not have myalgias but is VERY weak Review of Systems Review of Systems: gen - no fevers or chills; VERY weak ENT - congested, hoarse voice, impaired taste/smell CV - no orthopnea GI - no N/V - voiding fine Physical Exam Physical Exam: gen - obese, NAD mouth - MMM ENT - hoarse voice remains neck - no JVD heart - RRR, s1 s2, no murmur lungs - bibasilar rales - no change abd - soft NT ND BS+ ext - no edema, pulses 2+ b/l Results & Data Results & Data ([facility]) Vital Signs (Past 12 Hours) Vital Signs Temp Pulse Resp BP Pulse Ox 02/18/21 17:41 37.1 C 80 18 128/81 97 Laboratory Results Laboratory Results - last 24 hr 02/18/21 02/18/21 02/18/21 00:00 01:36 04:42 WBC RBC Hgb Hct MCV MCH MCHC RDW Std Deviation RDW Coeff of William Plt Count MPV Immature Gran % (Auto) Neut % (Auto) Lymph % (Auto) [place] % (Auto) Eos % (Auto) Baso % (Auto) Neut # (Auto) Lymph # (Auto) [place] # (Auto) Eos # (Auto) Baso # (Auto) Immature Gran # (Auto) Sodium Potassium Chloride Carbon Dioxide Anion Gap BUN Creatinine Est Cr Clr Drug Dosing Est GFR ( Amer) Est GFR (Non-Af Amer) BUN/Creatinine Ratio Glucose POC Glucose 226 H 223 H 189 H Calcium Total Bilirubin Direct Bilirubin AST ALT Alkaline Phosphatase Total Protein Albumin 02/18/21 02/18/21 02/18/21 05:30 05:30 08:27 WBC 9.43 RBC 4.20 L Hgb 12.3 L Hct 34.3 L MCV 81.7 MCH 29.3 MCHC 35.9 RDW Std Deviation 39.6 RDW Coeff of William 13.1 Plt Count 185 MPV 10.6 H Immature Gran % (Auto) 0.7 Neut % (Auto) 84.2 Lymph % (Auto) 7.4 [place] % (Auto) 7.6 Eos % (Auto) 0.0 Baso % (Auto) 0.1 Neut # (Auto) 7.93 H Lymph # (Auto) 0.70 L [place] # (Auto) 0.72 H Eos # (Auto) 0.00 Baso # (Auto) 0.01 Immature Gran # (Auto) 0.07 H Sodium 134 L Potassium 3.2 L D Chloride 102 Carbon Dioxide 24 Anion Gap 8.0 BUN 16 Creatinine 0.81 Est Cr Clr Drug Dosing 137.4 Est GFR ( Amer) 121.8 Est GFR (Non-Af Amer) 105.1 BUN/Creatinine Ratio 19.4 Glucose 179 H POC Glucose 197 H Calcium 8.0 L Total Bilirubin 0.5 Direct Bilirubin 0.1 AST 101 H ALT 69 Alkaline Phosphatase 63 Total Protein 5.8 L Albumin 2.2 L 02/18/21 02/18/21 02/18/21 12:21 17:39 21:22 WBC RBC Hgb Hct MCV MCH MCHC RDW Std Deviation RDW Coeff of William Plt Count MPV Immature Gran % (Auto) Neut % (Auto) Lymph % (Auto) [place] % (Auto) Eos % (Auto) Baso % (Auto) Neut # (Auto) Lymph # (Auto) [place] # (Auto) Eos # (Auto) Baso # (Auto) Immature Gran # (Auto) Sodium Potassium Chloride Carbon Dioxide Anion Gap BUN Creatinine Est Cr Clr Drug Dosing Est GFR ( Amer) Est GFR (Non-Af Amer) BUN/Creatinine Ratio Glucose POC Glucose 237 H 186 H 182 H Calcium Total Bilirubin Direct Bilirubin AST ALT Alkaline Phosphatase Total Protein Albumin PG Care Time/CCT Total # of Minutes Spent Total Time Spent with Patient: Total time spent is greater than 50% in coordination of care (as documented) at patient's floor/unit and/or counseling patient: Coding Level of Care Code 03533 Subseq Hosp Care Lvl 3 Diagnoses Pneumonia due to COVID-19 virus U07.1; J12.82 Acute respiratory failure with hypoxia J96.01 Diabetes mellitus type 2, uncontrolled E11.65 Rhabdomyolysis due to COVID-19 U07.1; M62.82 Hyponatremia E87.1 Elevated C-reactive protein (CRP) R79.82 Hypokalemia E87.6 DVT prophylaxis Z29.9
[2021-02-19 06:38] LABS: Hematocrit (blood only) 36.4 % (42-52); Hemoglobin 12.8 g/dL (14.0-18.0); Mean Corpuscular Hgb Conc 35.2 g/dL (32-36); Mean Corpuscular Volume 82.5 fL (80-100); Mean Platelet Volume 10.8 fL (7.4-10.4); Platelet Count 240 K/uL (130-400); RDW Coefficient of Variation 13.3 % (11.5-14.5); RDW Standard Deviation 40.3 fL (36.4-46.3); Red Blood Count 4.41 M/uL (4.7-6.1); White Blood Count 7.56 K/uL (4.8-10.8)
[2021-02-19 07:20] LABS: BUN Creatinine Ratio 24.6 (10-20); C Reactive Protein 7.13 mg/dl (0-0.29); Calcium 8.1 mg/dl (8.5-10.1); Creatinine Clr Calc Pharmacy 166.1 ml/min; Est GFR (African American) 131.7 ml/min; Est GFR (Non-African American) 113.6 ml/min; Potassium 3.9 mmol/L (3.5-5.1)
[2021-02-19] MEDS: ALBUTEROL HFA 8 GM INHALER INH SCH ×4 (07:53→20:16)
[2021-02-19] MEDS: INSULIN ASPART 100 UNITS/ML 3 ML PEN SC SCH ×4 (09:27→21:17)
[2021-02-19] MEDS: dexAMETHasone 6 MG in SYRINGE 0 ML IV SCH (09:29)
[2021-02-19] MEDS: ENOXAPARIN INJ 60 MG/0.6 ML SYR SQ SCH ×2 (09:30→20:31)
[2021-02-19] MEDS: guaiFENesin 600 MG TABCR PO SCH ×2 (09:30→20:31)
[2021-02-19] MEDS: hydroCHLOROthiazide 25 MG TAB PO SCH (09:31)
[2021-02-19] MEDS: INSULIN HUMAN NPH SC SCH (09:31)
[2021-02-19] MEDS: INSULIN GLARGINE SOLOSTAR 100 UNITS/ML 3 ML PEN SC SCH ×2 (09:31→21:03)
--- NOTE | 2021-02-19 10:34 | Pharmacy Report ---
Pharmacy Glycemic Short Note 2 - Date of Service February 19, 2021 - Glycemic Short BSG Results (Last 24 hours): 02/18/21 02/18/21 02/18/21 12:21 17:39 21:22 Glucose POC Glucose 237 H 186 H 182 H 02/19/21 02/19/21 06:12 08:10 Glucose 131 H POC Glucose 129 H OUTPATIENT ANTIDIABETIC REGIMEN: * N/A * A1c = 9.2% on 02/16/21 which is diagnostic for diabetes ASSESSMENT: 02/19 * Pt has received 108 units of insulin over the past 24hrs * 40 units of basal with Lantus * 40 units of NPH for steroid induced hyperglycemia * 28 units of bolus with NovoLog * BSGs [phone] mg/dl * BSGs elevated yesterday but it was only the first dose of NPH given for steroid induced hyperglycemia with dex 6mg IV daily * AM fasting BSG much improved today - trending near goal range with Lantus reac mary steady state. * No changes needed today. 02/18 * 50yo male - newly diagnosed diabetes diabetes per A1c * Pt with SEVERE sustained hyperglycemia secondary to undiagnosed diabetes, illness (COVID), and high dose steroids with dexamethasone IV daily * Start weight based SQ basal bolus insulin regimen (Lantus + NovoLog) for baseline insulin resistance * Add weight based NPH for steroid induced hyperglycemia (0.4 units/kg) * Titrate based on BSG trends to achieve goal BSGs 110-140 mg/dl PLAN FOR INPATIENT GLYCEMIC CONTROL: * Basal insulin * Lantus 20 units SQ BID * Steroid induced hyperglycemia * NPH 40 units (~0.4 units/kg) SQ daily with dexamethasone * Bolus insulin * NovoLog per scale ACHS or Q6hrs while NPO * Goal Range: Low 100 mg/dL - High 140 mg/dL * Correction Factor: 15 mg/dL/unit * Nutritional / Prandial insulin per carb ratio of 1 unit per 5 grams CHO consumed PLAN FOR DISCHARGE: * A1c = 9.2% on 02/16/21 * Goal A1c < 7% based on age/co-morbidities * A1c is between 8% and 10% consider dual combination therapy * Metformin + additional agent listed below. * Metformin should be started at the time type 2 diabetes is diagnosed unless there are contraindications. Metformin is effective and safe, is inexpensive, and may reduce risk of cardiovascular events and . * Recommend starting: Metformin XR 500mg PO daily with evening meal. Typically the XR formulation of metformin is better tolerated than the immediate release formulation. Continue to titrate metformin dosing upwards as recommended. Dosage increases should be made in increments of 500 mg weekly, up to 2,000 mg/day PO, given in divided doses. Doses above 2000 mg/day may be better tolerated if divided and given 3 times per day with meals. Max: 2,550 mg/day PO, in divided doses * B12 supplementation may be necessary with tank terminal gauger metformin use * Compelling need to minimize weight gain or promote weight loss: * GLP-1 receptor agonist: Decreases major adverse cardiovascular events, high efficacy, low hypo risk, weight loss, significant GI side effects (titrate low and slow) and risk of thyroid tumors, high cost * SGLT2 inhibitor: Decreases major adverse cardiovascular events, intermediate efficacy, low hypo risk, weight loss, /dehydration and risk of amputation (canagliflozin) side effects, high cost * Support Patient Self-Management * Healthy Lifestyle (diet, exercise, and smoking cessation) * Disease self-management (SMBG) * Prevention of complications (BP, Lipid goals, Immunizations) * Consider outpatient Diabetes Self-Management Education & Support
[2021-02-19] MEDS: REMDESIVIR 100 MG in SODIUM CHLORIDE 0.9% 230 ML IV SCH (11:32)
[2021-02-19] MEDS: SODIUM CHLORIDE 0.9% 10ML FLUSH IV SCH (12:47)
[2021-02-19] MEDS ORDERED: SODIUM CHLORIDE 0.65% NA SOLN 45 ML (OCEAN) PRN (16:00)
[2021-02-19] MEDS: TRIAMCINOLONE ACET NASAL SPRAY 10.8ML BTL NAE SCH (17:39)
--- NOTE | 2021-02-20 06:38 | Hospitalist Progress Note ---
Date of Service February 19, 2021 Assessment & Plan (1) Pneumonia due to COVID-19 virus: Plan: moderate disease with very high inflammatory markers at time of admission but improving. day #4 of dexamethasone 6mg IV. day #3 Remdesivir. cont pulm toilet, proning, etc. CRP improved today (25 --> 7) he is about 10 days into the illness. wean O2 as tolerated. (2) Acute respiratory failure with hypoxia: Plan: 2nd to #1. no evidence of complicating CHF or bacterial superinfection. slow improvement. (3) Diabetes mellitus type 2, uncontrolled: Plan: new dx. adjustments in lantus and novolog have led to better improvement. a1c - 9.2%. will need DM education, etc. DM diet. good candidate for metformin +/- lantus at discharge. (4) Rhabdomyolysis due to COVID-19: Plan: improving CPK in am (5) Hyponatremia: Plan: resolved 128 --> 137. bmp in am. was 2nd to HCTZ, poor oral intake, etc (6) Elevated C-reactive protein (CRP): Plan: 2nd to #1 repeat today MUCH improved (7) Hypokalemia: Plan: replaced and resolved (8) DVT prophylaxis: Plan: lovenox 50mg BID (~0.5mg/kg BID) Plan: updated pt's Aunt by phone yesterday evening pt requested nasocort - this was ordered nasal saline spray also ordered Admission and Anticipated Discharge Date Admission Date: February 17, 2021 Subjective pt overall feels a little better but still with no taste, smell or appetite voice remains hoarse still coughing, largely nonproductive with occasional sputum DOWD same or slightly better feels fatigued Review of Systems Review of Systems: gen - no fevers/chills CV - no cp or orthopnea pulm - no dyspnea at rest GI - no N/V musculo - no myalgias Physical Exam Physical Exam: gen - obese, NAD; o2 was off when I walked in room - o2 sats were high 80s in room air mouth - MMM ENT - hoarse voice unchanged neck - no JVD heart - RRR, s1 s2, no murmur lungs - bibasilar rales - maybe slightly better abd - soft NT ND BS+ ext - no edema, pulses 2+ b/l Results & Data Results & Data ([facility]) Vital Signs (Past 12 Hours) Vital Signs Temp Pulse Resp BP Pulse Ox 02/20/21 02:44 96 02/19/21 23:39 94 02/19/21 22:37 36.8 C 85 16 123/85 96 02/19/21 20:17 85 16 96 Laboratory Results Laboratory Results - last 24 hr 02/19/21 02/19/21 02/19/21 06:12 08:10 12:05 Sodium 137 Potassium 3.9 D Chloride 105 Carbon Dioxide 25 Anion Gap 7.0 BUN 16 Creatinine 0.67 Est Cr Clr Drug Dosing 166.1 Est GFR ( Amer) 131.7 Est GFR (Non-Af Amer) 113.6 BUN/Creatinine Ratio 24.6 H Glucose 131 H POC Glucose 129 H 186 H Calcium 8.1 L AST 81 H ALT 68 Total Creatine Kinase 1073 H C-Reactive Protein 7.13 H 02/19/21 02/19/21 17:06 21:17 Sodium Potassium Chloride Carbon Dioxide Anion Gap BUN Creatinine Est Cr Clr Drug Dosing Est GFR ( Amer) Est GFR (Non-Af Amer) BUN/Creatinine Ratio Glucose POC Glucose 242 H 211 H Calcium AST ALT Total Creatine Kinase C-Reactive Protein PG Care Time/CCT Total # of Minutes Spent Total Time Spent with Patient: Total time spent is greater than 50% in coordination of care (as documented) at patient's floor/unit and/or counseling patient: Coding Level of Care Code 24065 Subseq Hosp Care Lvl 2 Diagnoses Pneumonia due to COVID-19 virus U07.1; J12.82 Acute respiratory failure with hypoxia J96.01 Diabetes mellitus type 2, uncontrolled E11.65 Rhabdomyolysis due to COVID-19 U07.1; M62.82 Hyponatremia E87.1 Elevated C-reactive protein (CRP) R79.82 Hypokalemia E87.6 DVT prophylaxis Z29.9
[2021-02-20] MEDS: ALBUTEROL HFA 8 GM INHALER INH SCH ×4 (07:44→19:16)
[2021-02-20 07:51] LABS: BUN Creatinine Ratio 27.4 (10-20); Calcium 8.4 mg/dl (8.5-10.1); Creatinine Clr Calc Pharmacy 176.6 ml/min; Est GFR (African American) 135.1 ml/min; Est GFR (Non-African American) 116.5 ml/min; Potassium 3.2 mmol/L (3.5-5.1)
[2021-02-20] MEDS: INSULIN HUMAN NPH SC SCH (09:26)
[2021-02-20] MEDS: guaiFENesin 600 MG TABCR PO SCH ×2 (09:28→20:55)
[2021-02-20] MEDS: dexAMETHasone 6 MG in SYRINGE 0 ML IV SCH (09:28)
[2021-02-20] MEDS: hydroCHLOROthiazide 25 MG TAB PO SCH (09:28)
[2021-02-20] MEDS: ENOXAPARIN INJ 60 MG/0.6 ML SYR SQ SCH ×2 (09:29→20:54)
[2021-02-20] MEDS: INSULIN GLARGINE SOLOSTAR 100 UNITS/ML 3 ML PEN SC SCH ×2 (09:30→21:35)
[2021-02-20] MEDS: TRIAMCINOLONE ACET NASAL SPRAY 10.8ML BTL NAE SCH (09:30)
[2021-02-20] MEDS: INSULIN ASPART 100 UNITS/ML 3 ML PEN SC SCH ×4 (09:31→21:34)
[2021-02-20] MEDS: REMDESIVIR 100 MG in SODIUM CHLORIDE 0.9% 230 ML IV SCH (11:33)
[2021-02-20] MEDS: POLYETHYLENE (MIRALAX) 17 GM PACK PO SCH (11:49)
[2021-02-20] MEDS: SODIUM CHLORIDE 0.9% 10ML FLUSH IV SCH (12:39)
--- NOTE | 2021-02-20 13:46 | Pharmacy Report ---
Pharmacy Glycemic Short Note 2 - Date of Service February 20, 2021 - Glycemic Short BSG Results (Last 24 hours): 02/19/21 02/19/21 02/20/21 17:06 21:17 07:10 Glucose 68 L POC Glucose 242 H 211 H 02/20/21 02/20/21 08:26 12:33 Glucose POC Glucose 97 123 H OUTPATIENT ANTIDIABETIC REGIMEN: * N/A * A1c = 9.2% on 02/16/21 which is diagnostic for diabetes ASSESSMENT: 02/20/21: * Pt received 106 units of insulin yesterday * 40 units of basal with Lantus * 40 units of NPH for steroid-induced hyperglycemia * 26 units of bolus with Novolog * Fasting BSG was low this morning (68mg/dL) --> Lantus dose reduced * BSGs trending up afternoon/evening yesterday --> Novolog parameters tightened 02/19 * Pt has received 108 units of insulin over the past 24hrs * 40 units of basal with Lantus * 40 units of NPH for steroid induced hyperglycemia * 28 units of bolus with NovoLog * BSGs [phone] mg/dl * BSGs elevated yesterday but it was only the first dose of NPH given for kody roid induced hyperglycemia with dex 6mg IV daily * AM fasting BSG much improved today - trending near goal range with Lantus reaching steady state. * No changes needed today. 02/18 * 50yo male - newly diagnosed diabetes diabetes per A1c * Pt with SEVERE sustained hyperglycemia secondary to undiagnosed diabetes, illness (COVID), and high dose steroids with dexamethasone IV daily * Start weight based SQ basal bolus insulin regimen (Lantus + NovoLog) for baseline insulin resistance * Add weight based NPH for steroid induced hyperglycemia (0.4 units/kg) * Titrate based on BSG trends to achieve goal BSGs 110-140 mg/dl PLAN FOR INPATIENT GLYCEMIC CONTROL: * Basal insulin * Lantus 15 units SQ BID * Steroid induced hyperglycemia * NPH 40 units (~0.4 units/kg) SQ daily with dexamethasone * Bolus insulin * NovoLog per scale ACHS or Q6hrs while NPO * Goal Range: Low 100 mg/dL - High 140 mg/dL * Correction Factor: 12 mg/dL/unit * Nutritional / Prandial insulin per carb ratio of 1 unit per 4 grams CHO consumed PLAN FOR DISCHARGE: * A1c = 9.2% on 02/16/21 * Goal A1c < 7% based on age/co-morbidities * A1c is between 8% and 10% consider dual combination therapy * Metformin + additional agent listed below. * Metformin should be started at the time type 2 diabetes is diagnosed unless there are contraindications. Metformin is effective and safe, is inexpensive, and may reduce risk of cardiovascular events and . * Recommend starting: Metformin XR 500mg PO daily with evening meal. Typically the XR formulation of metformin is better tolerated than the immediate release formulation. Continue to titrate metformin dosing upwards as recommended. Dosage increases should be made in increments of 500 mg weekly, up to 2,000 mg/day PO, given in divided doses. Doses above 2000 mg/day may be better tolerated if divided and given 3 times per day with meals. Max: 2,550 mg/day PO, in divided doses * B12 supplementation may be necessary with termite helper metformin use * Compelling need to minimize weight gain or promote weight loss: * GLP-1 receptor agonist: Decreases major adverse cardiovascular events, high efficacy, low hypo risk, weight loss, significant GI side effects (titrate low and slow) and risk of thyroid tumors, high cost * SGLT2 inhibitor: Decreases major adverse cardiovascular events, intermediate efficacy, low hypo risk, weight loss, /dehydration and risk of amputation (canagliflozin) side effects, high cost * Support Patient Self-Management * Healthy Lifestyle (diet, exercise, and smoking cessation) * Disease self-management (SMBG) * Prevention of complications (BP, Lipid goals, Immunizations) * Consider outpatient Diabetes Self-Management Education & Support
--- NOTE | 2021-02-20 13:47 | Hospitalist Progress Note ---
Date of Service February 20, 2021 Assessment & Plan (1) Pneumonia due to COVID-19 virus: Plan: moderate disease with very high inflammatory markers at time of admission but improving. day #5 of dexamethasone 6mg IV. day #4 Remdesivir. cont pulm toilet, proning, etc. CRP improved a lot he is about 11 days into the illness. wean O2 as tolerated, stable on 3-5L today, no distress (2) Acute respiratory failure with hypoxia: Plan: 2nd to #1. no evidence of complicating CHF or bacterial superinfection. slow improvement encouraged him to be patient, keep proning (3) Diabetes mellitus type 2, uncontrolled: Plan: new dx. adjustments in lantus and novolog have led to better improvement. a1c - 9.2%. will need DM education, etc. DM diet. good candidate for metformin +/- lantus at discharge. (4) Rhabdomyolysis due to COVID-19: Plan: resolved (5) Hyponatremia: Plan: resolved 128 --> 137. bmp in am. (6) Elevated C-reactive protein (CRP): Plan: 2nd to #1 repeat today MUCH improved (7) Hypokalemia: Plan: replaced and resolved (8) DVT prophylaxis: Plan: lovenox 50mg BID (~0.5mg/kg BID) Admission and Anticipated Discharge Date Admission Date: February 17, 2021 Subjective patient doing well today, stable on 3-5L he says he coughs, moves around and he desaturates, concerns him told him to not worry, this is normal eating okay, making urine, K is low at 3.1, added BID replacement no fever/chills discussed that it could take a few days to recover, he understands Review of Systems Review of Systems: All systems reviewed & are unremarkable except as noted in Subjective Physical Exam Physical Exam: General: well developed, well nourished, ill appearing, no acute distress, comfortable Neck: supple, trachea midline, normal thyroid Lungs: clear to auscultation bilaterally, normal respiratory effort, no accessory muscle use, no distress Heart: regular S1 and S2, no murmur, peripheral pulses normal, capillary refill normal, no edema Abdomen: soft, NT, ND, + BS, no hepatomegaly, normal to percussion Extremities: normal in appearance, no cyanosis, no petechiae, strength is 5/5 bilaterally Neuro: awake, cooperative, moves all extremities, no focal motor deficits, CN II-XII intact, sensation in extremities intact, normal speech Skin: warm, dry, no rash, normal turgor Psych: Awake, alert oriented x 3, euthymic affect Results & Data Results & Data ([facility]) Vital Signs (Past 12 Hours) Vital Signs Temp Pulse Resp BP Pulse Ox 02/20/21 10:34 100 H 24 92 02/20/21 09:30 92 02/20/21 07:38 36.5 C 83 18 118/74 91 02/20/21 02:44 96 Laboratory Results Laboratory Results - last 24 hr 02/19/21 02/19/21 02/20/21 17:06 21:17 07:10 Sodium 138 Potassium 3.2 L D Chloride 105 Carbon Dioxide 24 Anion Gap 9.0 BUN 17 Creatinine 0.63 Est Cr Clr Drug Dosing 176.6 Est GFR ( Amer) 135.1 Est GFR (Non-Af Amer) 116.5 BUN/Creatinine Ratio 27.4 H Glucose 68 L POC Glucose 242 H 211 H Calcium 8.4 L AST 69 H Total Creatine Kinase 488 H 02/20/21 02/20/21 08:26 12:33 Sodium Potassium Chloride Carbon Dioxide Anion Gap BUN Creatinine Est Cr Clr Drug Dosing Est GFR ( Amer) Est GFR (Non-Af Amer) BUN/Creatinine Ratio Glucose POC Glucose 97 123 H Calcium AST Total Creatine Kinase Medications Administered Current Inpatient Medications Acetaminophen (Acetaminophen 325 Mg Tab) 650 mg PO Q4H PRN PRN Reason: pain or fever Stop: 03/19/21 01:58 EST Albuterol (Albuterol Hfa 8 Gm Inhaler) 2 puffs INH QIDR [facility] Stop: 03/21/21 06:59 Last Admin: 02/20/21 10:33 Dose: 2 puffs Documented by: Benzonatate (Benzonatate 100 Mg Capsule) 100 mg PO TID PRN PRN Reason: Cough Stop: 03/19/21 01:58 EST Dextrose (Dextrose 50% 50 Ml Syringe) 25 - 50 ml IV UD PRN; Protocol PRN Reason: Hypoglycemia Protocol Stop: 03/19/21 02:44 Enoxaparin Sodium (Enoxaparin Inj 60 Mg/0.6 Ml Syr) 50 mg SQ BID [facility] Stop: 03/19/21 08:59 Last Admin: 02/20/21 09:29 Dose: 50 mg Documented by: Glucagon (Glucagon For Inj 1 Mg Vial) 1 mg IM UD PRN; Protocol PRN Reason: Hypoglycemia Protocol Stop: 03/19/21 02:44 Glucose (Glucose 40% Gel 15 Gm Tube) 15 - 30 gm PO UD PRN; Protocol PRN Reason: Hypoglycemia Protocol Stop: 03/19/21 02:44 Glucose (Glucose 10 Tabs/Tube) 4 - 8 tabs PO UD PRN; Protocol PRN Reason: Hypoglycemia Protocol Stop: 03/19/21 02:44 Guaifenesin (Guaifenesin 600 Mg Tabcr) 1,200 mg PO Q12 [facility] Stop: 03/19/21 08:59 Last Admin: 02/20/21 09:28 Dose: 1,200 mg Documented by: Hydrochlorothiazide (Hydrochlorothiazide 25 Mg Tab) 25 mg PO DAILY [facility] Stop: 03/19/21 08:59 Last Admin: 02/20/21 09:28 Dose: 25 mg Documented by: Dexamethasone 6 mg/ Syringe 1.5 mls @ 1 mls/min IV Q24H [facility] Stop: 03/19/21 08:59 Last Admin: 02/20/21 09:28 Dose: 1 mls/min Documented by: Remdesivir 100 mg/ Sodium (Chloride) 250 mls @ 250 mls/hr IV Q24H [facility]; Protocol Stop: 02/21/21 12:59 Last Infusion: 02/20/21 12:39 Dose: Infused Documented by: Insulin Aspart (Insulin Aspart 100 Units/Ml 3 Ml Pen) 0 units SC ACHS [facility] Stop: 03/19/21 02:44 Last Admin: 02/20/21 13:27 Dose: 6 units Documented by: Insulin Glargine (Insulin Glargine Solostar 100 Units/Ml 3 Ml Pen) 15 units SC BID [facility] Stop: 03/22/21 08:59 Last Admin: 02/20/21 09:30 Dose: 15 units Documented by: Insulin Human NPH (Insulin Human Nph) 40 units SC DAILY [facility]; Protocol Stop: 03/20/21 08:59 Last Admin: 02/20/21 09:26 Dose: 40 units Documented by: Miscellaneous (Carbohydrates For Hypoglycemia ) 15 - 30 gm PO UD PRN PRN Reason: Hypoglycemia Treatment Stop: 03/19/21 02:44 Miscellaneous Information (Pharmacy Glycemic Mgmt Consult) 1 ea N/A UD PRN PRN Reason: Consult Stop: 03/20/21 00:29 Ondansetron HCl (Ondansetron Inj 2 Mg/Ml 2 Ml Vial) 4 mg IV Q6H PRN PRN Reason: Nausea Stop: 03/19/21 01:58 EST Polyethylene Glycol (Polyethylene (Miralax) 17 Gm Pack) 17 gm PO DAILY [facility] Stop: 03/22/21 11:29 Last Admin: 02/20/21 11:49 Dose: 17 gm Documented by: Sodium Chloride (Sodium Chloride 0.9% 10ml Flush) 30 ml IV Q24H [facility] Stop: 02/21/21 13:01 Last Admin: 02/20/21 12:39 Dose: 30 ml Documented by: Sodium Chloride (Sodium Chloride 0.65% Na Soln 45 Ml ([place])) 2 sprays NA Q1H PRN PRN Reason: Nasal Congestion/irritation Stop: 03/21/21 15:59 Last Admin: 02/19/21 16:22 Dose: 2 sprays Documented by: Triamcinolone Acetonide (Triamcinolone Acet Nasal [place] 10.8ml Btl) 2 sprays [place] DAILY [facility] Stop: 03/21/21 15:59 Last Admin: 02/20/21 09:30 Dose: 2 sprays Documented by: PG Care Time/CCT Total # of Minutes Spent Total Time Spent with Patient: Total time spent is greater than 50% in coordination of care (as documented) at patient's floor/unit and/or counseling patient: Coding Level of Care Code 36203 Subseq Hosp Care Lvl 2 Diagnoses Pneumonia due to COVID-19 virus U07.1; J12.82 Acute respiratory failure with hypoxia J96.01 Diabetes mellitus type 2, uncontrolled E11.65 Rhabdomyolysis due to COVID-19 U07.1; M62.82 Hyponatremia E87.1 Elevated C-reactive protein (CRP) R79.82 Hypokalemia E87.6 DVT prophylaxis Z29.9
[2021-02-20] MEDS: POTASSIUM CHLORIDE CRTAB 20 MEQ TABCR PO SCH (20:55)
[2021-02-20] MEDS: bisacodyL 10 MG SUPP PR PRN (21:59)
[2021-02-21] MEDS: ALBUTEROL HFA 8 GM INHALER INH SCH (07:39)
[2021-02-21] MEDS: COUGH DROP (SUGAR FREE) LOZ 24 LOZ/1 BOX BUCCAL PRN (08:41)
[2021-02-21] MEDS ORDERED: INSULIN GLARGINE SOLOSTAR 100 UNITS/ML 3 ML PEN SC SCH (09:00)
[2021-02-21] MEDS ORDERED: ALBUTEROL HFA 8 GM INHALER INH PRN (09:06)
[2021-02-21] MEDS: INSULIN HUMAN NPH SC SCH (09:29)
[2021-02-21] MEDS: dexAMETHasone 6 MG in SYRINGE 0 ML IV SCH (09:30)
[2021-02-21] MEDS: ENOXAPARIN INJ 60 MG/0.6 ML SYR SQ SCH ×2 (09:30→20:47)
[2021-02-21] MEDS: FUROSEMIDE 20 MG in SYRINGE 0 ML IV SCH (09:30)
[2021-02-21] MEDS: POTASSIUM CHLORIDE CRTAB 20 MEQ TABCR PO SCH ×2 (09:31→20:46)
[2021-02-21] MEDS: guaiFENesin 600 MG TABCR PO SCH ×2 (09:31→20:46)
[2021-02-21] MEDS: POLYETHYLENE (MIRALAX) 17 GM PACK PO SCH (09:31)
[2021-02-21] MEDS: TRIAMCINOLONE ACET NASAL SPRAY 10.8ML BTL NAE SCH (09:32)
[2021-02-21] MEDS: INSULIN ASPART 100 UNITS/ML 3 ML PEN SC SCH ×4 (09:32→20:45)
--- NOTE | 2021-02-21 11:51 | Hospitalist Progress Note ---
Date of Service February 21, 2021 Assessment & Plan (1) Pneumonia due to COVID-19 virus: Plan: moderate disease with very high inflammatory markers at time of admission but improving. day #6 of dexamethasone 6mg IV. day #5 Remdesivir. will add Zithromax 500mg PO daily due to low grade fever, cough cont pulm toilet, proning, etc. CRP improved a lot he is about 12 days into the illness. wean O2 as tolerated, stable on 4L today (2) Acute respiratory failure with hypoxia: Plan: 2nd to #1. slow improvement encouraged him to be patient, keep proning (3) Diabetes mellitus type 2, uncontrolled: Plan: new dx. adjustments in lantus and novolog have led to better improvement. a1c - 9.2%. will need DM education, etc. DM diet. good candidate for metformin +/- lantus at discharge. (4) Rhabdomyolysis due to COVID-19: Plan: resolved (5) Hyponatremia: Plan: resolved 128 --> 137. bmp tomorrow (6) Elevated C-reactive protein (CRP): Plan: 2nd to #1 repeat MUCH improved (7) Hypokalemia: Plan: replaced and resolved (8) DVT prophylaxis: Plan: lovenox 50mg BID (~0.5mg/kg BID) Admission and Anticipated Discharge Date Admission Date: February 17, 2021 Subjective patient doing okay, about the same as yesterday low grade fever this morning, admits he felt warm still with cough, mostly dry, irritating sleeping well, ate about half his breakfast this morning stable on 4L today, oxygen levels fluctuate sitting up in a chair, laying on his side/prone Review of Systems Review of Systems: All systems reviewed & are unremarkable except as noted in Subjective Physical Exam Physical Exam: General: well developed, well nourished, ill appearing, no acute distress, comfortable Neck: supple, trachea midline, normal thyroid Lungs: clear to auscultation bilaterally, normal respiratory effort, no accessory muscle use, no distress Heart: regular S1 and S2, no murmur, peripheral pulses normal, capillary refill normal, no edema Abdomen: soft, NT, ND, + BS, no hepatomegaly, normal to percussion Extremities: normal in appearance, no cyanosis, no petechiae, strength is 5/5 bilaterally Neuro: awake, cooperative, moves all extremities, no focal motor deficits, CN II-XII intact, sensation in extremities intact, normal speech Skin: warm, dry, no rash, normal turgor Psych: Awake, alert oriented x 3, euthymic affect Results & Data Results & Data ([facility]) Vital Signs (Past 12 Hours) Vital Signs Temp Pulse Resp BP Pulse Ox 02/21/21 08:00 37.9 C H 103 H 20 114/74 90 02/21/21 07:39 87 18 90 Laboratory Results Laboratory Results - last 24 hr 02/20/21 02/20/21 02/20/21 12:33 17:04 20:53 POC Glucose 123 H 159 H 217 H 02/21/21 08:06 POC Glucose 79 Medications Administered Current Inpatient Medications Acetaminophen (Acetaminophen 325 Mg Tab) 650 mg PO Q4H PRN PRN Reason: pain or fever Stop: 03/19/21 01:58 EST Albuterol (Albuterol Hfa 8 Gm Inhaler) 2 puffs INH QIDR PRN PRN Reason: Shortness Of Breath Or Wheezing Stop: 03/21/21 06:59 Benzonatate (Benzonatate 100 Mg Capsule) 100 mg PO TID PRN PRN Reason: Cough Stop: 03/19/21 01:58 EST Bisacodyl (Bisacodyl 10 Mg Supp) 10 mg [place] HS PRN PRN Reason: Constipation Stop: 03/22/21 21:30 Last Admin: 02/20/21 21:59 Dose: 10 mg Documented by: Dextrose (Dextrose 50% 50 Ml Syringe) 25 - 50 ml IV UD PRN; Protocol PRN Reason: Hypoglycemia Protocol Stop: 03/19/21 02:44 Enoxaparin Sodium (Enoxaparin Inj 60 Mg/0.6 Ml Syr) 50 mg SQ BID [facility] Stop: 03/19/21 08:59 Last Admin: 02/21/21 09:30 Dose: 50 mg Documented by: Glucagon (Glucagon For Inj 1 Mg Vial) 1 mg IM UD PRN; Protocol PRN Reason: Hypoglycemia Protocol Stop: 03/19/21 02:44 Glucose (Glucose 40% Gel 15 Gm Tube) 15 - 30 gm PO UD PRN; Protocol PRN Reason: Hypoglycemia Protocol Stop: 03/19/21 02:44 Glucose (Glucose 10 Tabs/Tube) 4 - 8 tabs PO UD PRN; Protocol PRN Reason: Hypoglycemia Protocol Stop: 03/19/21 02:44 Guaifenesin (Guaifenesin 600 Mg Tabcr) 1,200 mg PO Q12 [facility] Stop: 03/19/21 08:59 Last Admin: 02/21/21 09:31 Dose: 1,200 mg Documented by: Dexamethasone 6 mg/ Syringe 1.5 mls @ 1 mls/min IV Q24H [facility] Stop: 03/19/21 08:59 Last Admin: 02/21/21 09:30 Dose: 1 mls/min Documented by: Remdesivir 100 mg/ Sodium (Chloride) 250 mls @ 250 mls/hr IV Q24H [facility]; Protocol Stop: 02/21/21 12:59 Last Infusion: 02/20/21 12:39 Dose: Infused Documented by: Furosemide 20 mg/ Syringe 2 mls @ 4 mls/min IV QAM [facility] Stop: 03/23/21 08:59 Last Admin: 02/21/21 09:30 Dose: 4 mls/min Documented by: Insulin Aspart (Insulin Aspart 100 Units/Ml 3 Ml Pen) 0 units SC ACHS [facility] Stop: 03/19/21 02:44 Last Admin: 02/21/21 09:32 Dose: 5 units Documented by: Insulin Glargine (Insulin Glargine Solostar 100 Units/Ml 3 Ml Pen) 25 units SC DAILY [facility] Stop: 03/23/21 08:59 Last Admin: 02/21/21 09:29 Dose: 25 units Documented by: Insulin Human NPH (Insulin Human Nph) 40 units SC DAILY [facility]; Protocol Stop: 03/20/21 08:59 Last Admin: 02/21/21 09:29 Dose: 40 units Documented by: Menthol (Cough Drop (Sugar Free) Giovanni 24 Giovanni/1 Box) 1 giovanni BUCCAL NOW PRN PRN Reason: Sore Throat Stop: 03/23/21 08:03 Last Admin: 02/21/21 08:41 Dose: 1 giovanni Documented by: Miscellaneous (Carbohydrates For Hypoglycemia ) 15 - 30 gm PO UD PRN PRN Reason: Hypoglycemia Treatment Stop: 03/19/21 02:44 Miscellaneous Information (Pharmacy Glycemic Mgmt Consult) 1 ea N/A UD PRN PRN Reason: Consult Stop: 03/20/21 00:29 Ondansetron HCl (Ondansetron Inj 2 Mg/Ml 2 Ml Vial) 4 mg IV Q6H PRN PRN Reason: Nausea Stop: 03/19/21 01:58 EST Polyethylene Glycol (Polyethylene (Miralax) 17 Gm Pack) 17 gm PO DAILY [facility] Stop: 03/22/21 11:29 Last Admin: 02/21/21 09:31 Dose: 17 gm Documented by: Potassium Chloride (Potassium Chloride Crtab 20 Meq Tabcr) 20 meq PO BID [facility] Stop: 03/22/21 20:59 Last Admin: 02/21/21 09:31 Dose: 20 meq Documented by: Sodium Chloride (Sodium Chloride 0.9% 10ml Flush) 30 ml IV Q24H [facility] Stop: 02/21/21 13:01 Last Admin: 02/20/21 12:39 Dose: 30 ml Documented by: Sodium Chloride (Sodium Chloride 0.65% Na Soln 45 Ml ([place])) 2 sprays NA Q1H PRN PRN Reason: Nasal Congestion/irritation Stop: 03/21/21 15:59 Last Admin: 02/19/21 16:22 Dose: 2 sprays Documented by: Triamcinolone Acetonide (Triamcinolone Acet Nasal [place] 10.8ml Btl) 2 sprays [place] DAILY [facility] Stop: 03/21/21 15:59 Last Admin: 02/21/21 09:32 Dose: 2 sprays Documented by: PG Care Time/CCT Total # of Minutes Spent Total Time Spent with Patient: Total time spent is greater than 50% in coordination of care (as documented) at patient's floor/unit and/or counseling patient: Coding Level of Care Code 81052 Subseq Hosp Care Lvl 2 Diagnoses Pneumonia due to COVID-19 virus U07.1; J12.82 Acute respiratory failure with hypoxia J96.01 Diabetes mellitus type 2, uncontrolled E11.65 Rhabdomyolysis due to COVID-19 U07.1; M62.82 Hyponatremia E87.1 Elevated C-reactive protein (CRP) R79.82 Hypokalemia E87.6 DVT prophylaxis Z29.9
[2021-02-21] MEDS: AZITHROMYCIN 250 MG TAB PO SCH (12:34)
[2021-02-21] MEDS: REMDESIVIR 100 MG in SODIUM CHLORIDE 0.9% 230 ML IV SCH (12:34)
[2021-02-21] MEDS: SODIUM CHLORIDE 0.9% 10ML FLUSH IV SCH (13:44)
[2021-02-22 06:11] LABS: Hematocrit (blood only) 34.9 % (42-52); Hemoglobin 12.1 g/dL (14.0-18.0); Mean Corpuscular Hemoglobin 28.7 pg (25-34); Mean Corpuscular Hgb Conc 34.7 g/dL (32-36); Mean Corpuscular Volume 82.7 fL (80-100); Mean Platelet Volume 10.5 fL (7.4-10.4); Platelet Count 341 K/uL (130-400); RDW Coefficient of Variation 13.4 % (11.5-14.5); RDW Standard Deviation 40.1 fL (36.4-46.3); Red Blood Count 4.22 M/uL (4.7-6.1)
[2021-02-22 06:40] LABS: BUN Creatinine Ratio 21.8 (10-20); Calcium 8.4 mg/dl (8.5-10.1); Creatinine Clr Calc Pharmacy 156.7 ml/min; Est GFR (African American) 128.6 ml/min; Potassium 3.5 mmol/L (3.5-5.1)
[2021-02-22 06:41] LABS: C Reactive Protein 12.6 mg/dl (0-0.29)
[2021-02-22] MEDS: guaiFENesin 600 MG TABCR PO SCH ×2 (09:00→20:33)
[2021-02-22] MEDS ORDERED: INSULIN HUMAN NPH SC SCH (09:00)
[2021-02-22] MEDS: AZITHROMYCIN 250 MG TAB PO SCH (09:03)
[2021-02-22] MEDS: ENOXAPARIN INJ 60 MG/0.6 ML SYR SQ SCH ×2 (09:04→20:34)
[2021-02-22] MEDS: dexAMETHasone 6 MG in SYRINGE 0 ML IV SCH ×2 (09:04→20:34)
[2021-02-22] MEDS: FUROSEMIDE 20 MG in SYRINGE 0 ML IV SCH (09:05)
[2021-02-22] MEDS: INSULIN GLARGINE SOLOSTAR 100 UNITS/ML 3 ML PEN SC SCH (09:09)
[2021-02-22] MEDS: POLYETHYLENE (MIRALAX) 17 GM PACK PO SCH (09:10)
[2021-02-22] MEDS: POTASSIUM CHLORIDE CRTAB 20 MEQ TABCR PO SCH ×2 (09:10→20:33)
[2021-02-22] MEDS: INSULIN ASPART 100 UNITS/ML 3 ML PEN SC SCH ×5 (09:11→23:52)
--- NOTE | 2021-02-22 09:40 | Hospitalist Progress Note ---
Date of Service February 22, 2021 Assessment & Plan (1) Pneumonia due to COVID-19 virus: Plan: moderate disease with very high inflammatory markers at time of admission but improving. day #7 of dexamethasone 6mg IV, will increase to q12 since his CRP is trending up to 12 from 5 completed 5 days of Remdesivir. Zithromax 500mg PO daily, day 2 add Rocephin 2gm IV daily today since he still has the low grade temperature cont pulm toilet, proning, etc. he is about 13 days into the illness. wean O2 as tolerated, no success in weaning the past few days again, encouraged/stressed importance of prone, flutter valve, incentive spirometer (2) Acute respiratory failure with hypoxia: Plan: slow to improve, still on 3-4L try Lasix 20mg IV today prone often, flutter valve, incentive spirometer (3) Diabetes mellitus type 2, uncontrolled: Plan: new dx. adjustments in lantus and novolog have led to better improvement. a1c - 9.2%. will need DM education, etc. DM diet. good candidate for metformin +/- lantus at discharge. (4) Rhabdomyolysis due to COVID-19: Plan: resolved (5) Hyponatremia: Plan: resolved 136 today (6) Elevated C-reactive protein (CRP): Plan: now back up to 12 from 5 will add Rocephin, increase dexamethasone to q12 (7) Hypokalemia: Plan: replaced and resolved (8) DVT prophylaxis: Plan: lovenox 50mg BID (~0.5mg/kg BID) Admission and Anticipated Discharge Date Admission Date: February 17, 2021 Subjective patient feels about the same, still with low grade temp at 37.9 cough with some yellow sputum, no blood, breathing feels the same eating okay, about half of his breakfast this morning no BM for a few days but he had diarrhea originally no nausea/vomiting CRP is going up at 12 from 5, CBC and BMP stable encouraged him to lay prone, not doing it enough Review of Systems Review of Systems: All systems reviewed & are unremarkable except as noted in Subjective Physical Exam Physical Exam: General: well developed, well nourished, ill appearing, no acute distress, comfortable Neck: supple, trachea midline, normal thyroid Lungs: clear to auscultation bilaterally, normal respiratory effort, no accessory muscle use, no distress Heart: regular S1 and S2, no murmur, peripheral pulses normal, capillary refill normal, no edema Abdomen: soft, NT, ND, + BS, no hepatomegaly, normal to percussion Extremities: normal in appearance, no cyanosis, no petechiae, strength is 5/5 bilaterally Neuro: awake, cooperative, moves all extremities, no focal motor deficits, CN II-XII intact, sensation in extremities intact, normal speech Skin: warm, dry, no rash, normal turgor Psych: Awake, alert oriented x 3, euthymic affect Results & Data Results & Data ([facility]) Vital Signs (Past 12 Hours) Vital Signs Temp Pulse Resp BP Pulse Ox 02/22/21 09:20 37.9 C H 99 H 16 104/65 91 02/21/21 22:12 37.2 C 86 18 112/75 94 Laboratory Results Laboratory Results - last 24 hr 02/21/21 02/21/21 02/21/21 12:11 17:12 20:43 WBC RBC Hgb Hct MCV MCH MCHC RDW Std Deviation RDW Coeff of William Plt Count MPV Sodium Potassium Chloride Carbon Dioxide Anion Gap BUN Creatinine Est Cr Clr Drug Dosing Est GFR ( Amer) Est GFR (Non-Af Amer) BUN/Creatinine Ratio Glucose POC Glucose 146 H 183 H 213 H Calcium C-Reactive Protein 02/22/21 02/22/21 02/22/21 05:42 05:42 08:28 WBC 7.60 RBC 4.22 L Hgb 12.1 L Hct 34.9 L MCV 82.7 MCH 28.7 MCHC 34.7 RDW Std Deviation 40.1 RDW Coeff of William 13.4 Plt Count 341 MPV 10.5 H Sodium 136 Potassium 3.5 Chloride 104 Carbon Dioxide 27 Anion Gap 5.0 BUN 15 Creatinine 0.71 Est Cr Clr Drug Dosing 156.7 Est GFR ( Amer) 128.6 Est GFR (Non-Af Amer) 111.0 BUN/Creatinine Ratio 21.8 H Glucose 74 POC Glucose 79 Calcium 8.4 L C-Reactive Protein 12.60 H Medications Administered Current Inpatient Medications Acetaminophen (Acetaminophen 325 Mg Tab) 650 mg PO Q4H PRN PRN Reason: pain or fever Stop: 03/19/21 01:58 EST Albuterol (Albuterol Hfa 8 Gm Inhaler) 2 puffs INH QIDR PRN PRN Reason: Shortness Of Breath Or Wheezing Stop: 03/21/21 06:59 Last Admin: 02/21/21 15:12 Dose: 2 puffs Documented by: Azithromycin (Azithromycin 250 Mg Tab) 500 mg PO QAM GAURAV Stop: 02/28/21 11:59 Last Admin: 02/22/21 09:03 Dose: 500 mg Documented by: Benzonatate (Benzonatate 100 Mg Capsule) 100 mg PO TID PRN PRN Reason: Cough Stop: 03/19/21 01:58 EST Bisacodyl (Bisacodyl 10 Mg Supp) 10 mg IA HS PRN PRN Reason: Constipation Stop: 03/22/21 21:30 Last Admin: 02/20/21 21:59 Dose: 10 mg Documented by: Dextrose (Dextrose 50% 50 Ml Syringe) 25 - 50 ml IV UD PRN; Protocol PRN Reason: Hypoglycemia Protocol Stop: 03/19/21 02:44 Enoxaparin Sodium (Enoxaparin Inj 60 Mg/0.6 Ml Syr) 50 mg SQ BID [facility] Stop: 03/19/21 08:59 Last Admin: 02/22/21 09:04 Dose: 50 mg Documented by: Glucagon (Glucagon For Inj 1 Mg Vial) 1 mg IM UD PRN; Protocol PRN Reason: Hypoglycemia Protocol Stop: 03/19/21 02:44 Glucose (Glucose 40% Gel 15 Gm Tube) 15 - 30 gm PO UD PRN; Protocol PRN Reason: Hypoglycemia Protocol Stop: 03/19/21 02:44 Glucose (Glucose 10 Tabs/Tube) 4 - 8 tabs PO UD PRN; Protocol PRN Reason: Hypoglycemia Protocol Stop: 03/19/21 02:44 Guaifenesin (Guaifenesin 600 Mg Tabcr) 1,200 mg PO Q12 GAURAV Stop: 03/19/21 08:59 Last Admin: 02/22/21 09:00 Dose: 1,200 mg Documented by: Furosemide 20 mg/ Syringe 2 mls @ 4 mls/min IV QAM GAURAV Stop: 03/23/21 08:59 Last Admin: 02/22/21 09:05 Dose: 4 mls/min Documented by: Dexamethasone 6 mg/ Syringe 1.5 mls @ 1 mls/min IV Q12 GAURAV Stop: 03/24/21 20:59 Insulin Aspart (Insulin Aspart 100 Units/Ml 3 Ml Pen) 0 units SC ACHS GAURAV Stop: 03/19/21 02:44 Last Admin: 02/22/21 09:11 Dose: 4 units Documented by: Insulin Glargine (Insulin Glargine Solostar 100 Units/Ml 3 Ml Pen) 20 units SC DAILY GAURAV Stop: 03/24/21 08:59 Last Admin: 02/22/21 09:09 Dose: 20 units Documented by: Insulin Human NPH (Insulin Human Nph) 45 units SC DAILY [facility]; Protocol Stop: 03/24/21 08:59 Last Admin: 02/22/21 09:08 Dose: 45 units Documented by: Menthol (Cough Drop (Sugar Free) Giovanni 24 Giovanni/1 Box) 1 giovanni BUCCAL NOW PRN PRN Reason: Sore Throat Stop: 03/23/21 08:03 Last Admin: 02/21/21 08:41 Dose: 1 giovanni Documented by: Miscellaneous (Carbohydrates For Hypoglycemia ) 15 - 30 gm PO UD PRN PRN Reason: Hypoglycemia Treatment Stop: 03/19/21 02:44 Miscellaneous Information (Pharmacy Glycemic Mgmt Consult) 1 ea N/A UD PRN PRN Reason: Consult Stop: 03/20/21 00:29 Ondansetron HCl (Ondansetron Inj 2 Mg/Ml 2 Ml Vial) 4 mg IV Q6H PRN PRN Reason: Nausea Stop: 03/19/21 01:58 EST Polyethylene Glycol (Polyethylene (Miralax) 17 Gm Pack) 17 gm PO DAILY GAURAV Stop: 03/22/21 11:29 Last Admin: 02/22/21 09:10 Dose: 17 gm Documented by: Potassium Chloride (Potassium Chloride Crtab 20 Meq Tabcr) 20 meq PO BID GAURAV Stop: 03/22/21 20:59 Last Admin: 02/22/21 09:10 Dose: 20 meq Documented by: Sodium Chloride (Sodium Chloride 0.65% Na Soln 45 Ml ([place])) 2 sprays NA Q1H PRN PRN Reason: Nasal Congestion/irritation Stop: 03/21/21 15:59 Last Admin: 02/19/21 16:22 Dose: 2 sprays Documented by: Triamcinolone Acetonide (Triamcinolone Acet Nasal [place] 10.8ml Btl) 2 sprays [place] DAILY GAURAV Stop: 03/21/21 15:59 Last Admin: 02/21/21 09:32 Dose: 2 sprays Documented by: PG Care Time/CCT Total # of Minutes Spent Total Time Spent with Patient: Total time spent is greater than 50% in coordination of care (as documented) at patient's floor/unit and/or counseling patient: Coding Level of Care Code 48784 Subseq Hosp Care Lvl 3 Diagnoses Pneumonia due to COVID-19 virus U07.1; J12.82 Acute respiratory failure with hypoxia J96.01 Diabetes mellitus type 2, uncontrolled E11.65 Rhabdomyolysis due to COVID-19 U07.1; M62.82 Hyponatremia E87.1 Elevated C-reactive protein (CRP) R79.82 Hypokalemia E87.6 DVT prophylaxis Z29.9
[2021-02-22] MEDS ORDERED: POTASSIUM CHLORIDE CRTAB 20 MEQ TABCR PO SCH (10:15)
[2021-02-22] MEDS: TRIAMCINOLONE ACET NASAL SPRAY 10.8ML BTL NAE SCH (11:10)
[2021-02-22] MEDS: cefTRIAXone SODIUM 2,000 MG in DEXTROSE 5% 50 ML IV SCH (11:11)
--- NOTE | 2021-02-22 15:04 | Pharmacy Report ---
Pharmacy Glycemic Short Note 2 - Date of Service February 22, 2021 - Glycemic Short BSG Results (Last 24 hours): 02/21/21 02/21/21 02/22/21 17:12 20:43 05:42 Glucose 74 POC Glucose 183 H 213 H 02/22/21 02/22/21 08:28 12:21 Glucose POC Glucose 79 162 H OUTPATIENT ANTIDIABETIC REGIMEN: * N/A * A1c = 9.2% on 02/16/21 which is diagnostic for diabetes ASSESSMENT: 02/22/21: * BSGs slowly improving with insulin adjustments. * Fasting BSG still below goal. --> Lantus dose reduced further * Pt still hyperglycemic in the evening. --> NPH increased * Patient will be receiving IV dexamethasone q12h beginning this evening (increased from daily). This will very likely increase hyperglycemia. * Given that multiple changes were already implemented this morning, hesitant to add even more changes to regimen today. * Will check BSGs overnight (at 0000 and 0400) to provide coverage should pt become hyperglycemic overnight. * Possible scenarios for improved glycemic control while on q12h dex amethasone: -- schedule DXM at 0600,1800 with NPH at 0600, 1800? -- perhaps DXM could be dosed once daily, with an increased dose, rather than dosing twice daily? * Will monitor changes in BSG with added steroid burden, and make changes as needed tomorrow. 02/20 * Pt received 106 units of insulin yesterday * 40 units of basal with Lantus * 40 units of NPH for steroid-induced hyperglycemia * 26 units of bolus with Novolog * Fasting BSG was low this morning (68mg/dL) --> Lantus dose reduced * BSGs trending up afternoon/evening yesterday --> Novolog parameters tightened 02/19 * Pt has received 108 units of insulin over the past 24hrs * 40 units of basal with Lantus * 40 units of NPH for steroid induced hyperglycemia * 28 units of bolus with NovoLog * BSGs [phone] mg/dl * BSGs elevated yesterday but it was only the first dose of NPH given for steroid induced hyperglycemia with dex 6mg IV daily * AM fasting BSG much improved today - trending near goal range with Lantus reaching steady state. * No changes needed today. 02/18 * 50yo male - newly diagnosed diabetes diabetes per A1c * Pt with SEVERE sustained hyperglycemia secondary to undiagnosed diabetes, illness (COVID), and high dose steroids with dexamethasone IV daily * Start weight based SQ basal bolus insulin regimen (Lantus + NovoLog) for baseline insulin resistance * Add weight based NPH for steroid induced hyperglycemia (0.4 units/kg) * Titrate based on BSG trends to achieve goal BSGs 110-140 mg/dl PLAN FOR INPATIENT GLYCEMIC CONTROL: * Basal insulin * Lantus 20 units SQ daily * Steroid induced hyperglycemia * NPH 45 units SQ daily with dexamethasone * Bolus insulin * NovoLog per scale ACHS or Q6hrs while NPO * Goal Range: Low 100 mg/dL - High 140 mg/dL * Correction Factor: 12 mg/dL/unit * Nutritional / Prandial insulin per carb ratio of 1 unit per 4 grams CHO consumed PLAN FOR DISCHARGE: * A1c = 9.2% on 02/16/21 * Goal A1c < 7% based on age/co-morbidities * A1c is between 8% and 10% consider dual combination therapy * Metformin + additional agent listed below. * Metformin should be started at the time type 2 diabetes is diagnosed unless there are contraindications. Metformin is effective and safe, is inexpensive, and may reduce risk of cardiovascular events and . * Recommend starting: Metformin XR 500mg PO daily with evening meal. Typically the XR formulation of metformin is better tolerated than the immediate release formulation. Continue to titrate metformin dosing upwards as recommended. Dosage increases should be made in increments of 500 mg weekly, up to 2,000 mg/day PO, given in divided doses. Doses above 2000 mg/day may be better tolerated if divided and given 3 times per day with meals. Max: 2,550 mg/day PO, in divided doses * B12 supplementation may be necessary with [employer] metformin use * Compelling need to minimize weight gain or promote weight loss: * GLP-1 receptor agonist: Decreases major adverse cardiovascular events, high efficacy, low hypo risk, weight loss, significant GI side effects (titrate low and slow) and risk of thyroid tumors, high cost * SGLT2 inhibitor: Decreases major adverse cardiovascular events, intermediate efficacy, low hypo risk, weight loss, /dehydration and risk of amputation (canagliflozin) side effects, high cost * Support Patient Self-Management * Healthy Lifestyle (diet, exercise, and smoking cessation) * Disease self-management (SMBG) * Prevention of complications (BP, Lipid goals, Immunizations) * Consider outpatient Diabetes Self-Management Education & Support
[2021-02-23] MEDS: INSULIN ASPART 100 UNITS/ML 3 ML PEN SC SCH ×5 (03:54→20:38)
[2021-02-23] MEDS: guaiFENesin 600 MG TABCR PO SCH ×2 (09:38→19:51)
[2021-02-23] MEDS: POTASSIUM CHLORIDE CRTAB 20 MEQ TABCR PO SCH ×2 (09:39→19:51)
[2021-02-23] MEDS: AZITHROMYCIN 250 MG TAB PO SCH (09:39)
[2021-02-23] MEDS: POLYETHYLENE (MIRALAX) 17 GM PACK PO SCH (09:40)
[2021-02-23] MEDS: ENOXAPARIN INJ 60 MG/0.6 ML SYR SQ SCH ×2 (09:40→20:36)
[2021-02-23] MEDS: FUROSEMIDE 20 MG in SYRINGE 0 ML IV SCH (09:48)
[2021-02-23] MEDS: dexAMETHasone 6 MG in SYRINGE 0 ML IV SCH ×2 (09:48→20:36)
[2021-02-23] MEDS: TRIAMCINOLONE ACET NASAL SPRAY 10.8ML BTL NAE SCH (09:52)
[2021-02-23] MEDS: COUGH DROP (SUGAR FREE) LOZ 24 LOZ/1 BOX BUCCAL PRN (09:59)
[2021-02-23] MEDS: INSULIN GLARGINE SOLOSTAR 100 UNITS/ML 3 ML PEN SC SCH (10:00)
[2021-02-23] MEDS: INSULIN HUMAN NPH SC SCH (10:01)
[2021-02-23] MEDS: cefTRIAXone SODIUM 2,000 MG in DEXTROSE 5% 50 ML IV SCH (10:05)
--- NOTE | 2021-02-23 15:09 | Pharmacy Report ---
Pharmacy Glycemic Short Note 2 - Date of Service February 23, 2021 - Glycemic Short BSG Results (Last 24 hours): 02/22/21 02/22/21 02/22/21 17:20 20:40 23:47 POC Glucose 216 H 214 H 121 H 02/23/21 02/23/21 02/23/21 03:49 08:02 12:28 POC Glucose 116 H 136 H 203 H OUTPATIENT ANTIDIABETIC REGIMEN: * N/A * A1c = 9.2% on 02/16/21 which is diagnostic for diabetes ASSESSMENT: 02/23: * Patient received total 102 units of insulin yesterday; 65 units basal (20 units Lantus + 45 units NPH) + 37 units bolus * BSGs trended up above 200 mg/dl at dinner and HS but trended down to 121 mg/dl at midnight and 116 mg/dl at 4AM today despite patient receiving Decadron 6 mg IV again at 2100 last night. * Fasting BSG today was also at goal = 136 mg/dl. Basal Lantus continued the same as yesterday. * NPH insulin increased slightly to prevent IV steroid induced hyperglycemia at dinner and HS. Novolog parameters continued the same. 02/22/21: * BSGs slowly improving with insulin adjustments. * Fasting BSG still below goal. --> Lantus dose reduced further * Pt still hyperglycemic in the evening. --> NPH increased * Patient will be receiving IV dexamethasone q12h beginning this evening (increased from daily). This will very likely increase hyperglycemia. * Given that multiple changes were already implemented this morning, hesitant to add even more changes to regimen today. * Will check BSGs overnight (at 0000 and 0400) to provide coverage should pt become hyperglycemic overnight. * Possible scenarios for improved glycemic control while on q12h dexamethasone: -- schedule DXM at 0600,1800 with NPH at 0600, 1800? -- perhaps DXM could be dosed once daily, with an increased dose, rather than dosing twice daily? * Will monitor changes in BSG with added steroid burden, and make changes as needed tomorrow. 02/20 * Pt received 106 units of insulin yesterday * 40 units of basal with Lantus * 40 units of NPH for steroid-induced hyperglycemia * 26 units of bolus with Novolog * Fasting BSG was low this morning (68mg/dL) --> Lantus dose reduced * BSGs trending up afternoon/evening yesterday --> Novolog parameters tightened 02/19 * Pt has received 108 units of insulin over the past 24hrs * 40 units of basal with Lantus * 40 units of NPH for steroid induced hyperglycemia * 28 units of bolus with NovoLog * BSGs [phone] mg/dl * BSGs elevated yesterday but it was only the first dose of NPH given for steroid induced hyperglycemia with dex 6mg IV daily * AM fasting BSG much improved today - trending near goal range with Lantus reaching steady state. * No changes needed today. 02/18 * 50yo male - newly diagnosed diabetes diabetes per A1c * Pt with SEVERE sustained hyperglycemia secondary to undiagnosed diabetes, illness (COVID), and high dose steroids with dexamethasone IV daily * Start weight based SQ basal bolus insulin regimen (Lantus + NovoLog) for baseline insulin resistance * Add weight based NPH for steroid induced hyperglycemia (0.4 units/kg) * Titrate based on BSG trends to achieve goal BSGs 110-140 mg/dl PLAN FOR INPATIENT GLYCEMIC CONTROL: * Basal insulin: continued * Lantus 20 units SQ daily * Steroid induced hyperglycemia: increased NPH * NPH 50 units SQ daily with IV dexamethasone * Bolus insulin: continued * NovoLog per scale ACHS or Q6hrs while NPO and 00,04 checks * Goal Range: Low 100 mg/dL - High 140 mg/dL * Correction Factor: 12 mg/dL/unit * Nutritional / Prandial insulin per carb ratio of 1 unit per 4 grams CHO consumed PLAN FOR DISCHARGE: * A1c = 9.2% on 02/16/21 * Goal A1c < 7% based on age/co-morbidities * A1c is between 8% and 10% consider dual combination therapy * Metformin + additional agent listed below. * Metformin should be started at the time type 2 diabetes is diagnosed unless there are contraindications. Metformin is effective and safe, is inexpensive, and may reduce risk of cardiovascular events and . * Recommend starting: Metformin XR 500mg PO daily with evening meal. Typically the XR formulation of metformin is better tolerated than the immediate release formulation. Continue to titrate metformin dosing upwards as recommended. Dosage increases should be made in increments of 500 mg weekly, up to 2,000 mg/day PO, given in divided doses. Doses above 2000 mg/day may be better tolerated if divided and given 3 times per day with meals. Max: 2,550 mg/day PO, in divided doses * B12 supplementation may be necessary with group home metformin use * Compelling need to minimize weight gain or promote weight loss: * GLP-1 receptor agonist: Decreases major adverse cardiovascular events, high efficacy, low hypo risk, weight loss, significant GI side effects (titrate low and slow) and risk of thyroid tumors, high cost * SGLT2 inhibitor: Decreases major adverse cardiovascular events, intermediate efficacy, low hypo risk, weight loss, /dehydration and risk of amputation (canagliflozin) side effects, high cost * Support Patient Self-Management * Healthy Lifestyle (diet, exercise, and smoking cessation) * Disease self-management (SMBG) * Prevention of complications (BP, Lipid goals, Immunizations) * Consider outpatient Diabetes Self-Management Education & Support
--- NOTE | 2021-02-23 15:41 | Hospitalist Progress Note ---
Date of Service February 23, 2021 Assessment & Plan (1) Pneumonia due to COVID-19 virus: Plan: moderate disease with very high inflammatory markers at time of admission but improving. day #8 of dexamethasone 6mg IV, increased to q12 on 02/22 completed 5 days of Remdesivir. Zithromax 500mg PO daily, day 3 Rocephin 2gm IV daily, day 2, no fever since starting yesterday cont pulm toilet, proning, etc. he is about 14 days into the illness. wean O2 as tolerated, down to 3L which is improvement prone positioning a lot flutter valve, incentive spirometer (can pull 2500mL) (2) Acute respiratory failure with hypoxia: Plan: slow to improve, down to 3L continue Lasix 20mg IV daily prone often, flutter valve, incentive spirometer (3) Diabetes mellitus type 2, uncontrolled: Plan: new dx. adjustments in lantus and novolog have led to better improvement. a1c - 9.2%. will need DM education, etc. DM diet. good candidate for metformin +/- lantus at discharge. (4) Rhabdomyolysis due to COVID-19: Plan: resolved (5) Hyponatremia: Plan: resolved (6) Elevated C-reactive protein (CRP): Plan: now back up to 12 from 5 will repeat tomorrow (7) Hypokalemia: Plan: replaced and resolved (8) DVT prophylaxis: Plan: lovenox 50mg BID (~0.5mg/kg BID) Admission and Anticipated Discharge Date Admission Date: February 17, 2021 Subjective patient continues to complaint of being fatigued but breathing is better spent a lot of time prone today, oxygen requirements going down no fever since starting Rocephin eating better, no BM, no nausea, minimal cough, no sputum discussed that goal is to get him down to room air by end of weekend, can go home once off oxygen Review of Systems Review of Systems: All systems reviewed & are unremarkable except as noted in Subjective Constitutional: + fatigue and + weakness; no fever Respiratory: + cough, + dyspnea and + dyspnea on exertion Physical Exam Physical Exam: General: well developed, well nourished, ill appearing, no acute distress, comfortable Neck: supple, trachea midline, normal thyroid Lungs: clear to auscultation bilaterally, normal respiratory effort, no accessory muscle use, no distress Heart: regular S1 and S2, no murmur, peripheral pulses normal, capillary refill normal, no edema Abdomen: soft, NT, ND, + BS, no hepatomegaly, normal to percussion Extremities: normal in appearance, no cyanosis, no petechiae, strength is 5/5 bilaterally Neuro: awake, cooperative, moves all extremities, no focal motor deficits, CN II-XII intact, sensation in extremities intact, normal speech Skin: warm, dry, no rash, normal turgor Psych: Awake, alert oriented x 3, euthymic affect Results & Data Results & Data ([facility]) Vital Signs (Past 12 Hours) Vital Signs Temp Pulse Resp BP BP Pulse Ox 02/23/21 15:36 36.9 C 84 16 110/76 93 02/23/21 11:41 96 02/23/21 08:25 36.4 C L 86 18 112/76 92 Laboratory Results Laboratory Results - last 24 hr 02/22/21 02/22/21 02/22/21 17:20 20:40 23:47 POC Glucose 216 H 214 H 121 H 02/23/21 02/23/21 02/23/21 03:49 08:02 12:28 POC Glucose 116 H 136 H 203 H Medications Administered Current Inpatient Medications Acetaminophen (Acetaminophen 325 Mg Tab) 650 mg PO Q4H PRN PRN Reason: pain or fever Stop: 03/19/21 01:58 EST Last Admin: 02/22/21 11:14 Dose: 650 mg Documented by: Albuterol (Albuterol Hfa 8 Gm Inhaler) 2 puffs INH QIDR PRN PRN Reason: Shortness Of Breath Or Wheezing Stop: 03/21/21 06:59 Last Admin: 02/21/21 15:12 Dose: 2 puffs Documented by: Azithromycin (Azithromycin 250 Mg Tab) 500 mg PO QAM GAURAV Stop: 02/28/21 11:59 Last Admin: 02/23/21 09:39 Dose: 500 mg Documented by: Benzonatate (Benzonatate 100 Mg Capsule) 100 mg PO TID PRN PRN Reason: Cough Stop: 03/19/21 01:58 EST Bisacodyl (Bisacodyl 10 Mg Supp) 10 mg NV HS PRN PRN Reason: Constipation Stop: 03/22/21 21:30 Last Admin: 02/20/21 21:59 Dose: 10 mg Documented by: Dextrose (Dextrose 50% 50 Ml Syringe) 25 - 50 ml IV UD PRN; Protocol PRN Reason: Hypoglycemia Protocol Stop: 03/19/21 02:44 Enoxaparin Sodium (Enoxaparin Inj 60 Mg/0.6 Ml Syr) 50 mg SQ BID [facility] [place] Stop: 03/19/21 08:59 Last Admin: 02/23/21 09:40 Dose: 50 mg Documented by: Glucagon (Glucagon For Inj 1 Mg Vial) 1 mg IM UD PRN; Protocol PRN Reason: Hypoglycemia Protocol Stop: 03/19/21 02:44 Glucose (Glucose 40% Gel 15 Gm Tube) 15 - 30 gm PO UD PRN; Protocol PRN Reason: Hypoglycemia Protocol Stop: 03/19/21 02:44 Glucose (Glucose 10 Tabs/Tube) 4 - 8 tabs PO UD PRN; Protocol PRN Reason: Hypoglycemia Protocol Stop: 03/19/21 02:44 Guaifenesin (Guaifenesin 600 Mg Tabcr) 1,200 mg PO Q12 [facility] [place] Stop: 03/19/21 08:59 Last Admin: 02/23/21 09:38 Dose: 1,200 mg Documented by: Furosemide 20 mg/ Syringe 2 mls @ 4 mls/min IV QAM [facility] [place] Stop: 03/23/21 08:59 Last Admin: 02/23/21 09:48 Dose: 4 mls/min Documented by: Dexamethasone 6 mg/ Syringe 1.5 mls @ 1 mls/min IV Q12 [facility] Stop: 03/24/21 20:59 Last Admin: 02/23/21 09:48 Dose: 1 mls/min Documented by: Ceftriaxone Sodium 2,000 mg/ (Dextrose) 70 mls @ 100 mls/hr IV Q24H [facility] [place]; Protocol Stop: 03/01/21 09:59 Last Infusion: 02/23/21 10:43 Dose: Infused Documented by: Insulin Aspart (Insulin Aspart 100 Units/Ml 3 Ml Pen) 0 units SC ACHS [facility] [place] Stop: 03/19/21 02:44 Last Admin: 02/23/21 13:00 Dose: 11 units Documented by: Insulin Aspart (Insulin Aspart 100 Units/Ml 3 Ml Pen) 0 units SC 0000,0400 [facility] Stop: 03/25/21 00:00 Last Admin: 02/23/21 03:54 Dose: Not Given Documented by: Insulin Glargine (Insulin Glargine Solostar 100 Units/Ml 3 Ml Pen) 20 units SC DAILY [facility] Stop: 03/24/21 08:59 Last Admin: 02/23/21 10:00 Dose: 20 units Documented by: Insulin Human NPH (Insulin Human Nph) 50 units SC DAILY [facility]; Protocol Stop: 03/25/21 08:59 Last Admin: 02/23/21 10:01 Dose: 50 units Documented by: Menthol (Cough Drop (Sugar Free) Giovanni 24 Giovanni/1 Box) 1 giovanni BUCCAL NOW PRN PRN Reason: Sore Throat Stop: 03/23/21 08:03 Last Admin: 02/23/21 09:59 Dose: 1 giovanni Documented by: Miscellaneous (Carbohydrates For Hypoglycemia ) 15 - 30 gm PO UD PRN PRN Reason: Hypoglycemia Treatment Stop: 03/19/21 02:44 Miscellaneous Information (Pharmacy Glycemic Mgmt Consult) 1 ea N/A UD PRN PRN Reason: Consult Stop: 03/20/21 00:29 Ondansetron HCl (Ondansetron Inj 2 Mg/Ml 2 Ml Vial) 4 mg IV Q6H PRN PRN Reason: Nausea Stop: 03/19/21 01:58 EST Polyethylene Glycol (Polyethylene (Miralax) 17 Gm Pack) 17 gm PO DAILY [facility] Stop: 03/22/21 11:29 Last Admin: 02/23/21 09:40 Dose: 17 gm Documented by: Potassium Chloride (Potassium Chloride Crtab 20 Meq Tabcr) 20 meq PO BID [facility] Stop: 03/22/21 20:59 Last Admin: 02/23/21 09:39 Dose: 20 meq Documented by: Sodium Chloride (Sodium Chloride 0.65% Na Soln 45 Ml ([place])) 2 sprays NA Q1H PRN PRN Reason: Nasal Congestion/irritation Stop: 03/21/21 15:59 Last Admin: 02/19/21 16:22 Dose: 2 sprays Documented by: Triamcinolone Acetonide (Triamcinolone Acet Nasal [place] 10.8ml Btl) 2 sprays NA E DAILY [facility] Stop: 03/21/21 15:59 Last Admin: 02/23/21 09:52 Dose: 2 sprays Documented by: PG Care Time/CCT Total # of Minutes Spent Total Time Spent with Patient: Total time spent is greater than 50% in coordination of care (as documented) at patient's floor/unit and/or counseling patient: Coding Level of Care Code 55538 Subseq Hosp Care Lvl 3 Diagnoses Pneumonia due to COVID-19 virus U07.1; J12.82 Acute respiratory failure with hypoxia J96.01 Diabetes mellitus type 2, uncontrolled E11.65 Rhabdomyolysis due to COVID-19 U07.1; M62.82 Hyponatremia E87.1 Elevated C-reactive protein (CRP) R79.82 Hypokalemia E87.6 DVT prophylaxis Z29.9
[2021-02-23] MEDS: bisacodyL 10 MG SUPP PR PRN (19:56)
[2021-02-24] MEDS: INSULIN ASPART 100 UNITS/ML 3 ML PEN SC SCH ×6 (04:21→21:00)
[2021-02-24 08:27] LABS: BUN Creatinine Ratio 25.3 (10-20); C Reactive Protein 4.17 mg/dl (0-0.29); Calcium 8.8 mg/dl (8.5-10.1); Creatinine Clr Calc Pharmacy 127.9 ml/min; Est GFR (African American) 118.3 ml/min; Est GFR (Non-African American) 102.1 ml/min; Potassium 4.3 mmol/L (3.5-5.1)
[2021-02-24] MEDS: POTASSIUM CHLORIDE CRTAB 20 MEQ TABCR PO SCH ×2 (08:48→20:03)
[2021-02-24] MEDS: guaiFENesin 600 MG TABCR PO SCH ×2 (08:48→20:03)
[2021-02-24] MEDS: dexAMETHasone 6 MG in SYRINGE 0 ML IV SCH ×2 (08:48→20:59)
[2021-02-24] MEDS: AZITHROMYCIN 250 MG TAB PO SCH (08:48)
[2021-02-24] MEDS: FUROSEMIDE 20 MG in SYRINGE 0 ML IV SCH (08:48)
[2021-02-24] MEDS: ENOXAPARIN INJ 60 MG/0.6 ML SYR SQ SCH ×3 (08:49→20:02)
[2021-02-24] MEDS: INSULIN GLARGINE SOLOSTAR 100 UNITS/ML 3 ML PEN SC SCH (08:50)
[2021-02-24] MEDS: INSULIN HUMAN NPH SC SCH (08:52)
[2021-02-24] MEDS: POLYETHYLENE (MIRALAX) 17 GM PACK PO SCH (08:52)
[2021-02-24] MEDS: TRIAMCINOLONE ACET NASAL SPRAY 10.8ML BTL NAE SCH (08:53)
[2021-02-24] MEDS: cefTRIAXone SODIUM 2,000 MG in DEXTROSE 5% 50 ML IV SCH (09:19)
--- NOTE | 2021-02-24 13:06 | Hospitalist Progress Note ---
Date of Service February 24, 2021 Assessment & Plan (1) Pneumonia due to COVID-19 virus: Plan: moderate disease with very high inflammatory markers at time of admission but improving. day #9 of dexamethasone 6mg IV, increased to q12 on 02/22 CRP down to 4 today completed 5 days of Remdesivir. Zithromax 500mg PO daily, day 4 Rocephin 2gm IV daily, day 3, no fever since starting yesterday cont pulm toilet, proning, etc. he is about 15 days into the illness. wean O2 as tolerated, down to 2L which is improvement prone positioning a lot flutter valve, incentive spirometer (can pull 2500mL) (2) Acute respiratory failure with hypoxia: Plan: slow to improve, down to 2L continue Lasix 20mg IV daily, BMP is stable prone often, flutter valve, incentive spirometer check 2 step tomorrow (3) Diabetes mellitus type 2, uncontrolled: Plan: new dx. adjustments in lantus and novolog have led to better improvement. a1c - 9.2%. will need DM education, etc. DM diet. good candidate for metformin +/- lantus at discharge. (4) Rhabdomyolysis due to COVID-19: Plan: resolved (5) Hyponatremia: Plan: resolved (6) Elevated C-reactive protein (CRP): Plan: down to 4 from 12 after increasing dexamethasone will repeat tomorrow (7) Hypokalemia: Plan: replaced and resolved (8) DVT prophylaxis: Plan: lovenox 50mg BID (~0.5mg/kg BID) Admission and Anticipated Discharge Date Admission Date: February 17, 2021 Subjective patient still fatigued but a little more energy breathing well, proned for several hours this morning, very compliant he takes oxygen off to walk to the bathroom, encouraged him to keep it on at all times, not doing himself any favors eating very well, no nausea, no diarrhea reviewed labs, CRP down to 4, BMP stable discussed getting 2 step tomorrow and trying to go home, he was not to sure about that I told him tomorrow is day 10 of steroids, almost done with antibiotics he can lay in bed at home with low flow oxygen and complete treatment Review of Systems Review of Systems: All systems reviewed & are unremarkable except as noted in Subjective Constitutional: + fatigue Respiratory: + dyspnea on exertion; no sputum production Physical Exam Physical Exam: General: well developed, well nourished, ill appearing, no acute distress, comfortable Neck: supple, trachea midline, normal thyroid Lungs: clear to auscultation bilaterally, normal respiratory effort, no accessory muscle use, no distress Heart: regular S1 and S2, no murmur, peripheral pulses normal, capillary refill normal, no edema Abdomen: soft, NT, ND, + BS, no hepatomegaly, normal to percussion Extremities: normal in appearance, no cyanosis, no petechiae, strength is 5/5 bilaterally Neuro: awake, cooperative, moves all extremities, no focal motor deficits, CN II-XII intact, sensation in extremities intact, normal speech Skin: warm, dry, no rash, normal turgor Psych: Awake, alert oriented x 3, euthymic affect Results & Data Results & Data ([facility]) Vital Signs (Past 12 Hours) Vital Signs Temp Pulse Resp BP Pulse Ox 02/24/21 11:04 78 97 02/24/21 07:55 36.8 C 85 20 123/86 85 L Laboratory Results Laboratory Results - last 24 hr 02/23/21 02/23/21 02/23/21 17:02 20:34 23:57 Sodium Potassium Chloride Carbon Dioxide Anion Gap BUN Creatinine Est Cr Clr Drug Dosing Est GFR ( Amer) Est GFR (Non-Af Amer) BUN/Creatinine Ratio Glucose POC Glucose 219 H 288 H 211 H Calcium C-Reactive Protein 02/24/21 02/24/21 02/24/21 04:18 07:05 08:02 Sodium 137 Potassium 4.3 Chloride 103 Carbon Dioxide 29 Anion Gap 5.0 BUN 22 H Creatinine 0.87 Est Cr Clr Drug Dosing 127.9 Est GFR ( Amer) 118.3 Est GFR (Non-Af Amer) 102.1 BUN/Creatinine Ratio 25.3 H Glucose 110 H POC Glucose 132 H 103 H Calcium 8.8 C-Reactive Protein 4.17 H 02/24/21 12:43 Sodium Potassium Chloride Carbon Dioxide Anion Gap BUN Creatinine Est Cr Clr Drug Dosing Est GFR ( Amer) Est GFR (Non-Af Amer) BUN/Creatinine Ratio Glucose POC Glucose 99 Calcium C-Reactive Protein Medications Administered Current Inpatient Medications Acetaminophen (Acetaminophen 325 Mg Tab) 650 mg PO Q4H PRN PRN Reason: pain or fever Stop: 03/19/21 01:58 EST Last Admin: 02/22/21 11:14 Dose: 650 mg Documented by: Albuterol (Albuterol Hfa 8 Gm Inhaler) 2 puffs INH QIDR PRN PRN Reason: Shortness Of Breath Or Wheezing Stop: 03/21/21 06:59 Last Admin: 02/21/21 15:12 Dose: 2 puffs Documented by: Azithromycin (Azithromycin 250 Mg Tab) 500 mg PO QAM [facility] Stop: 02/28/21 11:59 Last Admin: 02/24/21 08:48 Dose: 500 mg Documented by: Benzonatate (Benzonatate 100 Mg Capsule) 100 mg PO TID PRN PRN Reason: Cough Stop: 03/19/21 01:58 EST Bisacodyl (Bisacodyl 10 Mg Supp) 10 mg DC HS PRN PRN Reason: Constipation Stop: 03/22/21 21:30 Last Admin: 02/23/21 19:56 Dose: 10 mg Documented by: Dextrose (Dextrose 50% 50 Ml Syringe) 25 - 50 ml IV UD PRN; Protocol PRN Reason: Hypoglycemia Protocol Stop: 03/19/21 02:44 Enoxaparin Sodium (Enoxaparin Inj 60 Mg/0.6 Ml Syr) 50 mg SQ BID [facility] Stop: 03/19/21 08:59 Last Admin: 02/24/21 10:10 Dose: 50 mg Documented by: Glucagon (Glucagon For Inj 1 Mg Vial) 1 mg IM UD PRN; Protocol PRN Reason: Hypoglycemia Protocol Stop: 03/19/21 02:44 Glucose (Glucose 40% Gel 15 Gm Tube) 15 - 30 gm PO UD PRN; Protocol PRN Reason: Hypoglycemia Protocol Stop: 03/19/21 02:44 Glucose (Glucose 10 Tabs/Tube) 4 - 8 tabs PO UD PRN; Protocol PRN Reason: Hypoglycemia Protocol Stop: 03/19/21 02:44 Guaifenesin (Guaifenesin 600 Mg Tabcr) 1,200 mg PO Q12 [facility] Stop: 03/19/21 08:59 Last Admin: 02/24/21 08:48 Dose: 1,200 mg Documented by: Furosemide 20 mg/ Syringe 2 mls @ 4 mls/min IV QAM [facility] Stop: 03/23/21 08:59 Last Admin: 02/24/21 08:48 Dose: 4 mls/min Documented by: Dexamethasone 6 mg/ Syringe 1.5 mls @ 1 mls/min IV Q12 [facility] Stop: 03/24/21 20:59 Last Admin: 02/24/21 08:48 Dose: 1 mls/min Documented by: Ceftriaxone Sodium 2,000 mg/ (Dextrose) 70 mls @ 100 mls/hr IV Q24H [facility]; Protocol Stop: 03/01/21 09:59 Last Infusion: 02/24/21 10:05 Dose: Infused Documented by: Insulin Aspart (Insulin Aspart 100 Units/Ml 3 Ml Pen) 0 units SC ACHS [facility] Stop: 03/19/21 02:44 Last Admin: 02/24/21 12:49 Dose: 2 units Documented by: Insulin Aspart (Insulin Aspart 100 Units/Ml 3 Ml Pen) 0 units SC 0000,0400 [facility] Stop: 03/25/21 00:00 Last Admin: 02/24/21 04:21 Dose: Not Given Documented by: Insulin Glargine (Insulin Glargine Solostar 100 Units/Ml 3 Ml Pen) 20 units SC DAILY [facility] Stop: 03/24/21 08:59 Last Admin: 02/24/21 08:50 Dose: 20 units Documented by: Insulin Human NPH (Insulin Human Nph) 50 units SC DAILY [facility]; Protocol Stop: 03/25/21 08:59 Last Admin: 02/24/21 08:52 Dose: 50 units Documented by: Menthol (Cough Drop (Sugar Free) Giovanni 24 Giovanni/1 Box) 1 giovanni BUCCAL NOW PRN PRN Reason: Sore Throat Stop: 03/23/21 08:03 Last Admin: 02/23/21 09:59 Dose: 1 giovanni Documented by: Miscellaneous (Carbohydrates For Hypoglycemia ) 15 - 30 gm PO UD PRN PRN Reason: Hypoglycemia Treatment Stop: 03/19/21 02:44 Miscellaneous Information (Pharmacy Glycemic Mgmt Consult) 1 ea N/A UD PRN PRN Reason: Consult Stop: 03/20/21 00:29 Ondansetron HCl (Ondansetron Inj 2 Mg/Ml 2 Ml Vial) 4 mg IV Q6H PRN PRN Reason: Nausea Stop: 03/19/21 01:58 EST Polyethylene Glycol (Polyethylene (Miralax) 17 Gm Pack) 17 gm PO DAILY [facility] Stop: 03/22/21 11:29 Last Admin: 02/24/21 08:52 Dose: 17 gm Documented by: Potassium Chloride (Potassium Chloride Crtab 20 Meq Tabcr) 20 meq PO BID [facility] Stop: 03/22/21 20:59 Last Admin: 02/24/21 08:48 Dose: 20 meq Documented by: Sodium Chloride (Sodium Chloride 0.65% Na Soln 45 Ml ([place])) 2 sprays NA Q1H PRN PRN Reason: Nasal Congestion/irritation Stop: 03/21/21 15:59 Last Admin: 02/19/21 16:22 Dose: 2 sprays Documented by: Triamcinolone Acetonide (Triamcinolone Acet Nasal [place] 10.8ml Btl) 2 sprays [place] DAILY [facility] Stop: 03/21/21 15:59 Last Admin: 02/24/21 08:53 Dose: 2 sprays Documented by: PG Care Time/CCT Total # of Minutes Spent Total Time Spent with Patient: Total time spent is greater than 50% in public information coordinator rdination of care (as documented) at patient's floor/unit and/or counseling patient: Coding Level of Care Code 14097 Subseq Hosp Care Lvl 2 Diagnoses Pneumonia due to COVID-19 virus U07.1; J12.82 Acute respiratory failure with hypoxia J96.01 Diabetes mellitus type 2, uncontrolled E11.65 Rhabdomyolysis due to COVID-19 U07.1; M62.82 Hyponatremia E87.1 Elevated C-reactive protein (CRP) R79.82 Hypokalemia E87.6 DVT prophylaxis Z29.9
--- NOTE | 2021-02-24 14:56 | Pharmacy Report ---
Pharmacy Glycemic Short Note 2 - Date of Service February 24, 2021 - Glycemic Short BSG Results (Last 24 hours): 02/23/21 02/23/21 02/23/21 17:02 20:34 23:57 Glucose POC Glucose 219 H 288 H 211 H 02/24/21 02/24/21 02/24/21 04:18 07:05 08:02 Glucose 110 H POC Glucose 132 H 103 H 02/24/21 12:43 Glucose POC Glucose 99 OUTPATIENT ANTIDIABETIC REGIMEN: * N/A * A1c = 9.2% on 02/16/21 which is diagnostic for diabetes ASSESSMENT: 02/24: * Patient received total 126 units of insulin yesterday; 70 units basal and 56 units bolus * BSGs trended up again yesterday at dinner and HS. Pt continues to be on IV Dexamethasone 6 mg IV q12h at 09:00 and 21:00. * Tightened Novolog carb ratio to help prevent high BSGs later in the day. * Patient's fasting BSG = 103 mg/dl and pre-lunch BSG = 99 mg/dl today. Continued current basal NPH and Lantus dosing. 02/23: * Patient received total 102 units of insulin yesterday; 65 units basal (20 units Lantus + 45 units NPH) + 37 units bolus * BSGs trended up above 200 mg/dl at dinner and HS but trended down to 121 mg/dl at midnight and 116 mg/dl at 4AM today despite patient receiving Decadron 6 mg IV again at 2100 last night. * Fasting BSG today was also at goal = 136 mg/dl. Basal Lantus continued the same as yesterday. * NPH insulin increased slightly to prevent IV steroid induced hyperglycemia at dinner and HS. Novolog parameters continued the same. 02/22/21: * BSGs slowly improving with insulin adjustments. * Fasting BSG still below goal. --> Lantus dose reduced further * Pt still hyperglycemic in the evening. --> NPH increased * Patient will be receiving IV dexamethasone q12h beginning this evening (increased from daily). This will very likely increase hyperglycemia. * Given that multiple changes were already implemented this morning, hesitant to add even more changes to regimen today. * Will check BSGs overnight (at 0000 and 0400) to provide coverage should pt become hyperglycemic overnight. * Possible scenarios for improved glycemic control while on q12h dexamethasone: -- schedule DXM at 0600,1800 with NPH at 0600, 1800? -- perhaps DXM could be dosed once daily, with an increased dose, rather than dosing twice daily? * Will monitor changes in BSG with added steroid burden, and make changes as needed tomorrow. 02/20 * Pt received 106 units of insulin yesterday * 40 units of basal with Lantus * 40 units of NPH for steroid-induced hyperglycemia * 26 units of bolus with Novolog * Fasting BSG was low this morning (68mg/dL) --> Lantus dose reduced * BSGs trending up afternoon/evening yesterday --> Novolog parameters tightened 02/19 * Pt has received 108 units of insulin over the past 24hrs * 40 units of basal with Lantus * 40 units of NPH for steroid induced hyperglycemia * 28 units of bolus with NovoLog * BSGs [phone] mg/dl * BSGs elevated yesterday but it was only the first dose of NPH given for steroid induced hyperglycemia with dex 6mg IV daily * AM fasting BSG much improved today - trending near goal range with Lantus reaching steady state. * No changes needed today. 02/18 * 50yo male - newly diagnosed diabetes diabetes per A1c * Pt with SEVERE sustained hyperglycemia secondary to undiagnosed diabetes, illness (COVID), and high dose steroids with dexamethasone IV daily * Start weight based SQ basal bolus insulin regimen (Lantus + NovoLog) for baseline insulin resistance * Add weight based NPH for steroid induced hyperglycemia (0.4 units/kg) * Titrate based on BSG trends to achieve goal BSGs 110-140 mg/dl PLAN FOR INPATIENT GLYCEMIC CONTROL: * Basal insulin: * Lantus 20 units SQ daily * Steroid induced hyperglycemia: * NPH 50 units SQ daily with IV dexamethasone * Bolus insulin: tightened CR * NovoLog per scale ACHS or Q6hrs while NPO and ,04 checks * Goal Range: Low 100 mg/dL - High 140 mg/dL * Correction Factor: 12 mg/dL/unit * Nutritional / Prandial insulin per carb ratio of 1 unit per 3 grams CHO consumed PLAN FOR DISCHARGE: * A1c = 9.2% on 02/16/21 * Goal A1c < 7% based on age/co-morbidities * A1c is between 8% and 10% consider dual combination therapy * Metformin + additional agent listed below. * Metformin should be started at the time type 2 diabetes is diagnosed unless there are contraindications. Metformin is effective and safe, is inexpensive, and may reduce risk of cardiovascular events and . * Recommend starting: Metformin XR 500mg PO daily with evening meal. Typically the XR formulation of metformin is better tolerated than the immediate release formulation. Continue to titrate metformin dosing upwards as recommended. Dosage increases should be made in increments of 500 mg weekly, up to 2,000 mg/day PO, given in divided doses. Doses above 2000 mg/day may be better tolerated if divided and given 3 times per day with meals. Max: 2,550 mg/day PO, in divided doses * B12 supplementation may be necessary with penitentiary metformin use * Compelling need to minimize weight gain or promote weight loss: * GLP-1 receptor agonist: Decreases major adverse cardiovascular events, high efficacy, low hypo risk, weight loss, significant GI side effects (titrate low and slow) and risk of thyroid tumors, high cost * SGLT2 inhibitor: Decreases major adverse cardiovascular events, intermediate efficacy, low hypo risk, weight loss, /dehydration and risk of amputation (canagliflozin) side effects, high cost * Support Patient Self-Management * Healthy Lifestyle (diet, exercise, and smoking cessation) * Disease self-management (SMBG) * Prevention of complications (BP, Lipid goals, Immunizations) * Consider outpatient Diabetes Self-Management Education & Support
[2021-02-25] MEDS: INSULIN ASPART 100 UNITS/ML 3 ML PEN SC SCH ×6 (00:28→20:47)
[2021-02-25] MEDS ORDERED: INSULIN GLARGINE SOLOSTAR 100 UNITS/ML 3 ML PEN SC SCH (09:00)
[2021-02-25] MEDS: INSULIN HUMAN NPH SC SCH (09:43)
[2021-02-25] MEDS: dexAMETHasone 6 MG in SYRINGE 0 ML IV SCH ×2 (09:57→20:49)
[2021-02-25] MEDS: cefTRIAXone SODIUM 2,000 MG in DEXTROSE 5% 50 ML IV SCH (09:57)
[2021-02-25] MEDS: FUROSEMIDE 20 MG in SYRINGE 0 ML IV SCH (09:57)
[2021-02-25] MEDS: POTASSIUM CHLORIDE CRTAB 20 MEQ TABCR PO SCH ×2 (09:57→20:48)
[2021-02-25] MEDS: ENOXAPARIN INJ 60 MG/0.6 ML SYR SQ SCH ×2 (09:57→20:49)
[2021-02-25] MEDS: AZITHROMYCIN 250 MG TAB PO SCH (09:58)
[2021-02-25] MEDS: guaiFENesin 600 MG TABCR PO SCH ×2 (09:58→20:48)
[2021-02-25] MEDS: POLYETHYLENE (MIRALAX) 17 GM PACK PO SCH (09:58)
[2021-02-25] MEDS: TRIAMCINOLONE ACET NASAL SPRAY 10.8ML BTL NAE SCH (09:59)
--- NOTE | 2021-02-25 13:30 | Hospitalist Progress Note ---
Date of Service February 25, 2021 Assessment & Plan (1) Pneumonia due to COVID-19 virus: Plan: moderate disease with very high inflammatory markers at time of admission but improving. day #10 of dexamethasone 6mg IV, increased to q12 on 02/22 CRP down to 4 yesterday continue q12 for today, decrease to daily tomorrow completed 5 days of Remdesivir. Zithromax 500mg PO daily, day 5 Rocephin 2gm IV daily, day 4, no fever since starting yesterday cont pulm toilet, proning, etc. he is about 15 days into the illness. wean O2 as tolerated, down to 2L at rest did not pass 2 step today prone positioning a lot flutter valve, incentive spirometer (can pull 2500mL) (2) Acute respiratory failure with hypoxia: Plan: slow to improve, down to 2L continue Lasix 20mg IV daily, BMP is stable prone often, flutter valve, incentive spirometer failed two step today, try again on Tuesday 02/27 (3) Diabetes mellitus type 2, uncontrolled: Plan: new dx. adjustments in lantus and novolog have led to better improvement. a1c - 9.2%. will need DM education, etc. DM diet. good candidate for metformin +/- lantus at discharge. (4) Rhabdomyolysis due to COVID-19: Plan: resolved (5) Hyponatremia: Plan: resolved (6) Elevated C-reactive protein (CRP): Plan: down to 4 from 12 after increasing dexamethasone will repeat tomorrow (7) Hypokalemia: Plan: replaced and resolved (8) DVT prophylaxis: Plan: lovenox 50mg BID (~0.5mg/kg BID) Admission and Anticipated Discharge Date Admission Date: February 17, 2021 Subjective patient had a 2 step today, did not do well, was only on 2L at rest, but could not keep sats > 88% on 6L discussed that we can try again in two days he is okay with staying, he is eating, laying prone Review of Systems Review of Systems: All systems reviewed & are unremarkable except as noted in Subjective Respiratory: + cough, + dyspnea and + dyspnea on exertion Physical Exam Physical Exam: General: well developed, well nourished, ill appearing, no acute distress, comfortable Neck: supple, trachea midline, normal thyroid Lungs: clear to auscultation bilaterally, normal respiratory effort, no accessory muscle use, no distress Heart: regular S1 and S2, no murmur, peripheral pulses normal, capillary refill normal, no edema Abdomen: soft, NT, ND, + BS, no hepatomegaly, normal to percussion Extremities: normal in appearance, no cyanosis, no petechiae, strength is 5/5 bilaterally Neuro: awake, cooperative, moves all extremities, no focal motor deficits, CN II-XII intact, sensation in extremities intact, normal speech Skin: warm, dry, no rash, normal turgor Psych: Awake, alert oriented x 3, euthymic affect Results & Data Results & Data ([facility]) Vital Signs (Past 12 Hours) Vital Signs Temp Pulse Pulse Pulse Pulse Pulse Pulse 02/25/21 09:22 86 112 H 111 H 110 H 110 H 02/25/21 08:32 36.6 C 77 Pulse Pulse Resp Resp Resp Resp Resp 02/25/21 09:22 103 H 81 18 20 20 20 02/25/21 08:32 18 Resp Resp Resp BP Pulse Ox Pulse Ox Pulse Ox 02/25/21 09:22 20 20 18 92 74 L 02/25/21 08:32 128/82 95 Pulse Ox Pulse Ox Pulse Ox Pulse Ox Pulse Ox 02/25/21 09:22 80 L 85 L 74 L 91 84 L 02/25/21 08:32 Laboratory Results Laboratory Results - last 24 hr 02/24/21 02/24/21 02/25/21 17:17 20:57 00:12 POC Glucose 155 H 163 H 88 02/25/21 02/25/21 02/25/21 04:49 08:24 12:20 POC Glucose 120 H 88 145 H Medications Administered Current Inpatient Medications Acetaminophen (Acetaminophen 325 Mg Tab) 650 mg PO Q4H PRN PRN Reason: pain or fever Stop: 03/19/21 01:58 EST Last Admin: 02/22/21 11:14 Dose: 650 mg Documented by: Albuterol (Albuterol Hfa 8 Gm Inhaler) 2 puffs INH QIDR PRN PRN Reason: Shortness Of Breath Or Wheezing Stop: 03/21/21 06:59 Last Admin: 02/21/21 15:12 Dose: 2 puffs Documented by: Azithromycin (Azithromycin 250 Mg Tab) 500 [facility] [place] Stop: 02/28/21 11:59 Last Admin: 02/25/21 09:58 Dose: 500 mg Documented by: Benzonatate (Benzonatate 100 Mg Capsule) 100 mg PO TID PRN PRN Reason: Cough Stop: 03/19/21 01:58 EST Bisacodyl (Bisacodyl 10 Mg Supp) 10 mg WI HS PRN PRN Reason: Constipation Stop: 03/22/21 21:30 Last Admin: 02/23/21 19:56 Dose: 10 mg Documented by: Dextrose (Dextrose 50% 50 Ml Syringe) 25 - 50 ml IV UD PRN; Protocol PRN Reason: Hypoglycemia Protocol Stop: 03/19/21 02:44 Enoxaparin Sodium (Enoxaparin Inj 60 Mg/0.6 Ml Syr) 50 mg SQ BID [facility] Stop: 03/19/21 08:59 Last Admin: 02/25/21 09:57 Dose: 50 mg Documented by: Glucagon (Glucagon For Inj 1 Mg Vial) 1 mg IM UD PRN; Protocol PRN Reason: Hypoglycemia Protocol Stop: 03/19/21 02:44 Glucose (Glucose 40% Gel 15 Gm Tube) 15 - 30 gm PO UD PRN; Protocol PRN Reason: Hypoglycemia Protocol Stop: 03/19/21 02:44 Glucose (Glucose 10 Tabs/Tube) 4 - 8 tabs PO UD PRN; Protocol PRN Reason: Hypoglycemia Protocol Stop: 03/19/21 02:44 Guaifenesin (Guaifenesin 600 Mg Tabcr) 1,200 mg PO Q12 [facility] Stop: 03/19/21 08:59 Last Admin: 02/25/21 09:58 Dose: 1,200 mg Documented by: Furosemide 20 mg/ Syringe 2 mls @ 4 mls/min IV QAM [facility] Stop: 03/23/21 08:59 Last Admin: 02/25/21 09:57 Dose: 4 mls/min Documented by: Dexamethasone 6 mg/ Syringe 1.5 mls @ 1 mls/min IV Q12 [facility] Stop: 03/24/21 20:59 Last Admin: 02/25/21 09:57 Dose: 1 mls/min Documented by: Ceftriaxone Sodium 2,000 mg/ (Dextrose) 70 mls @ 100 mls/hr IV Q24H [facility]; Protocol Stop: 03/01/21 09:59 Last Infusion: 02/25/21 10:55 Dose: Infused Documented by: Insulin Aspart (Insulin Aspart 100 Units/Ml 3 Ml Pen) 0 units SC ACHS [facility] Stop: 03/19/21 02:44 Last Admin: 02/25/21 09:41 Dose: 6 units Documented by: Insulin Glargine (Insulin Glargine Solostar 100 Units/Ml 3 Ml Pen) 15 units SC DAILY [facility] Stop: 03/27/21 08:59 Last Admin: 02/25/21 09:41 Dose: 15 units Documented by: Insulin Human NPH (Insulin Human Nph) 50 units SC DAILY [facility]; Protocol Stop: 03/25/21 08:59 Last Admin: 02/25/21 09:43 Dose: 50 units Documented by: Menthol (Cough Drop (Sugar Free) Giovanni 24 Giovanni/1 Box) 1 giovanni BUCCAL NOW PRN PRN Reason: Sore Throat Stop: 03/23/21 08:03 Last Admin: 02/23/21 09:59 Dose: 1 giovanni Documented by: Miscellaneous (Carbohydrates For Hypoglycemia ) 15 - 30 gm PO UD PRN PRN Reason: Hypoglycemia Treatment Stop: 03/19/21 02:44 Miscellaneous Information (Pharmacy Glycemic Mgmt Consult) 1 ea N/A UD PRN PRN Reason: Consult Stop: 03/20/21 00:29 Ondansetron HCl (Ondansetron Inj 2 Mg/Ml 2 Ml Vial) 4 mg IV Q6H PRN PRN Reason: Nausea Stop: 03/19/21 01:58 EST Polyethylene Glycol (Polyethylene (Miralax) 17 Gm Pack) 17 gm PO DAILY [facility] Stop: 03/22/21 11:29 Last Admin: 02/25/21 09:58 Dose: Not Given Documented by: Potassium Chloride (Potassium Chloride Crtab 20 Meq Tabcr) 20 meq PO BID [facility] Stop: 03/22/21 20:59 Last Admin: 02/25/21 09:57 Dose: 20 meq Documented by: Sodium Chloride (Sodium Chloride 0.65% Na Soln 45 Ml ([place])) 2 sprays NA Q1H PRN PRN Reason: Nasal Congestion/irritation Stop: 03/21/21 15:59 Last Admin: 02/19/21 16:22 Dose: 2 sprays Documented by: Triamcinolone Acetonide (Triamcinolone Acet Nasal [place] 10.8ml Btl) 2 sprays [place] DAILY [facility] Stop: 03/21/21 15:59 Last Admin: 02/25/21 09:59 Dose: 2 sprays Documented by: PG Care Time/CCT Total # of Minutes Spent Total Time Spent with Patient: Total time spent is greater than 50% in coordination of care (as documented) at patient's floor/unit and/or counseling patient: Coding Level of Care Code 93819 Subseq Hosp Care Lvl 2 Diagnoses Pneumonia due to COVID-19 virus U07.1; J12.82 Acute respiratory failure with hypoxia J96.01 Diabetes mellitus type 2, uncontrolled E11.65 Rhabdomyolysis due to COVID-19 U07.1; M62.82 Hyponatremia E87.1 Elevated C-reactive protein (CRP) R79.82 Hypokalemia E87.6 DVT prophylaxis Z29.9
[2021-02-25] MEDS: COUGH DROP (SUGAR FREE) LOZ 24 LOZ/1 BOX BUCCAL PRN (20:58)
[2021-02-26] MEDS ORDERED: INSULIN GLARGINE SOLOSTAR 100 UNITS/ML 3 ML PEN SC SCH (09:00)
[2021-02-26] MEDS: INSULIN ASPART 100 UNITS/ML 3 ML PEN SC SCH ×4 (09:24→21:14)
[2021-02-26] MEDS: INSULIN HUMAN NPH SC SCH (09:26)
[2021-02-26] MEDS: FUROSEMIDE 20 MG in SYRINGE 0 ML IV SCH (09:27)
[2021-02-26] MEDS: POTASSIUM CHLORIDE CRTAB 20 MEQ TABCR PO SCH ×2 (09:27→20:20)
[2021-02-26] MEDS: guaiFENesin 600 MG TABCR PO SCH ×2 (09:28→20:19)
[2021-02-26] MEDS: dexAMETHasone 6 MG in SYRINGE 0 ML IV SCH (09:28)
[2021-02-26] MEDS: POLYETHYLENE (MIRALAX) 17 GM PACK PO SCH (09:28)
[2021-02-26] MEDS: ENOXAPARIN INJ 60 MG/0.6 ML SYR SQ SCH ×2 (09:28→20:20)
[2021-02-26] MEDS: AZITHROMYCIN 250 MG TAB PO SCH (09:28)
[2021-02-26] MEDS: TRIAMCINOLONE ACET NASAL SPRAY 10.8ML BTL NAE SCH (09:29)
[2021-02-26] MEDS: cefTRIAXone SODIUM 2,000 MG in DEXTROSE 5% 50 ML IV SCH (09:55)
--- NOTE | 2021-02-26 13:13 | Pharmacy Report ---
Pharmacy Glycemic Short Note 2 - Date of Service February 26, 2021 - Glycemic Short BSG Results (Last 24 hours): 02/25/21 02/25/21 02/26/21 17: 20:46 08:31 POC Glucose 101 H 157 H 82 02/26/21 12:18 POC Glucose 154 H OUTPATIENT ANTIDIABETIC REGIMEN: * N/A * A1c = 9.2% on 02/16/21 which is diagnostic for diabetes ASSESSMENT: 02/26/21 * Patient's BSGs yesterday were [phone] mg/dL and fasting today is 88 mg/dL. * Patient received 99 units of insulin yesterday (65 units of basal of which 50 units was NPH and 15 units was Lantus and 34 units of bolus insulin). * Dexamethasone decreased to once daily. * Fasting today was 88 mg/dL which is the same as yesterday ... since fasting stayed the same and dexamethasone decreased by half, will reduce Lantus to 10 units (33% reduction). * Decrease NPH by 20% to 40 units since BSGs were lower yesterday and steroid decreased by half. * Continue Novolog in case NPH reduction was too aggressive. 02/24: * Patient received total 126 units of insulin yesterday; 70 units basal and 56 units bolus * BSGs trended up again yesterday at dinner and HS. Pt continues to be on IV Dexamethasone 6 mg IV q12h at 09:00 and 21:00. * Tightened Novolog carb ratio to help prevent high BSGs later in the day. * Patient's fasting BSG = 103 mg/dl and pre-lunch BSG = 99 mg/dl today. Continued current basal NPH and Lantus dosing. 02/23: * Patient received total 102 units of insulin yesterday; 65 units basal (20 units Lantus + 45 units NPH) + 37 units bolus * BSGs trended up above 200 mg/dl at dinner and HS but trended down to 121 mg/dl at midnight and 116 mg/dl at 4AM today despite patient receiving Decadron 6 mg IV again at 2100 last night. * Fasting BSG today was also at goal = 136 mg/dl. Basal Lantus continued the same as yesterday. * NPH insulin increased slightly to prevent IV steroid induced hyperglycemia at dinner and HS. Novolog parameters continued the same. 02/22/21: * BSGs slowly improving with insulin adjustments. * Fasting BSG still below goal. --> Lantus dose reduced further * Pt still hyperglycemic in the evening. --> NPH increased * Patient will be receiving IV dexamethasone q12h beginning this evening (increased from daily). This will very likely increase hyperglycemia. * Given that multiple changes were already implemented this morning, hesitant to add even more changes to regimen today. * Will check BSGs overnight (at 0000 and 0400) to provide coverage should pt become hyperglycemic overnight. * Possible scenarios for improved glycemic control while on q12h dexamethasone: -- schedule DXM at 0600,1800 with NPH at 0600, 1800? -- perhaps DXM could be dosed once daily, with an increased dose, rather than dosing twice daily? * Will monitor changes in BSG with added steroid burden, and make changes as needed tomorrow. 02/20 * Pt received 106 units of insulin yesterday * 40 units of basal with Lantus * 40 units of NPH for steroid-induced hyperglycemia * 26 units of bolus with Novolog * Fasting BSG was low this morning (68mg/dL) --> Lantus dose reduced * BSGs trending up afternoon/evening yesterday --> Novolog parameters tightened 02/19 * Pt has received 108 units of insulin over the past 24hrs * 40 units of basal with Lantus * 40 units of NPH for steroid induced hyperglycemia * 28 units of bolus with NovoLog * BSGs [phone] mg/dl * BSGs elevated yesterday but it was only the first dose of NPH given for steroid induced hyperglycemia with dex 6mg IV daily * AM fasting BSG much improved today - trending near goal range with Lantus reaching steady state. * No changes needed today. 02/18 * 50yo male - newly diagnosed diabetes diabetes per A1c * Pt with SEVERE sustained hyperglycemia secondary to undiagnosed diabetes, illness (COVID), and high dose steroids with dexamethasone IV daily * Start weight based SQ basal bolus insulin regimen (Lantus + NovoLog) for baseline insulin resistance * Add weight based NPH for steroid induced hyperglycemia (0.4 units/kg) * Titrate based on BSG trends to achieve goal BSGs 110-140 mg/dl PLAN FOR INPATIENT GLYCEMIC CONTROL: * Basal insulin: * Lantus 10 units SQ daily * Steroid induced hyperglycemia: * NPH 40 units SQ daily with IV dexamethasone * Bolus insulin: tightened CR * NovoLog per scale ACHS or Q6hrs while NPO and 00,04 checks * Goal Range: Low 100 mg/dL - High 140 mg/dL * Correction Factor: 12 mg/dL/unit * Nutritional / Prandial insulin per carb ratio of 1 unit per 3 grams CHO consumed PLAN FOR DISCHARGE: * A1c = 9.2% on 02/16/21 * Goal A1c < 7% based on age/co-morbidities * A1c is between 8% and 10% consider dual combination therapy * Metformin + additional agent listed below. * Metformin should be started at the time type 2 diabetes is diagnosed unless there are contraindications. Metformin is effective and safe, is inexpensive, and may reduce risk of cardiovascular events and . * Recommend starting: Metformin XR 500mg PO daily with evening meal. Typically the XR formulation of metformin is better tolerated than the immediate release formulation. Continue to titrate metformin dosing upwards as recommended. Dosage increases should be made in increments of 500 mg weekly, up to 2,000 mg/day PO, given in divided doses. Doses above 2000 mg/day may be better tolerated if divided and given 3 times per day with meals. Max: 2,550 mg/day PO, in divided doses * B12 supplementation may be necessary with usp metformin use * Compelling need to minimize weight gain or promote weight loss: * GLP-1 receptor agonist: Decreases major adverse cardiovascular events, high efficacy, low hypo risk, weight loss, significant GI side effects (titrate low and slow) and risk of thyroid tumors, high cost * SGLT2 inhibitor: Decreases major adverse cardiovascular events, intermediate efficacy, low hypo risk, weight loss, /dehydration and risk of amputation (canagliflozin) side effects, high cost * Support Patient Self-Management * Healthy Lifestyle (diet, exercise, and smoking cessation) * Disease self-management (SMBG) * Prevention of complications (BP, Lipid goals, Immunizations) * Consider outpatient Diabetes Self-Management Education & Support
--- NOTE | 2021-02-26 14:01 | Hospitalist Progress Note ---
Date of Service February 26, 2021 Assessment & Plan (1) Pneumonia due to COVID-19 virus: Plan: moderate disease with very high inflammatory markers at time of admission but improving. day #10 of dexamethasone 6mg IV, increased to q12 on 02/22 CRP down to 4 on 02/14 decreased back to daily on 02/26, would give a few more days of 6mg PO daily on discharge then stop completed 5 days of Remdesivir. Zithromax 500mg PO daily, completed 6 days Rocephin 2gm IV daily, day 5, no fever since starting continue Rocephin until discharge, would not need antibiotics on discharge cont pulm toilet, proning, etc. he is about 16 days into the illness. wean O2 as tolerated, down to room air at rest today did not pass 2 step on 02/25 due to needing more than 6L on exertion will try again tomorrow morning I think he will be okay to go tomorrow prone positioning a lot flutter valve, incentive spirometer (can pull 2500mL) (2) Acute respiratory failure with hypoxia: Plan: slow to improve, finally down to room air today continue Lasix 20mg IV daily, BMP is stable prone often, flutter valve, incentive spirometer failed two step on 02/25 due to needing more than 6L on exertion attempt again tomorrow morning and try for discharge (3) Diabetes mellitus type 2, uncontrolled: Plan: new dx. adjustments in lantus and novolog have led to better improvement. a1c - 9.2%. will need DM education, etc. DM diet. good candidate for metformin +/- lantus at discharge talk with pharmacy about a discharge plan (4) Rhabdomyolysis due to COVID-19: Plan: resolved (5) Hyponatremia: Plan: resolved (6) Elevated C-reactive protein (CRP): Plan: down to 4 from 12 after increasing dexamethasone (7) Hypokalemia: Plan: replaced and resolved (8) DVT prophylaxis: Plan: lovenox 50mg BID (~0.5mg/kg BID) Plan: two step in the morning try for discharge tomorrow, I would continue dexamethasone PO for 2-3 more days but should do fine Admission and Anticipated Discharge Date Admission Date: February 17, 2021 Subjective down to room air today, he says he feels more relaxed he ate the biggest meal he has in days today [birth year] birthday, he is a little bummed about being here, looking forward to trying to leave tomorrow no nausea, no diarrhea, minimal cough, no chest pain breathing feels fine when he is walking around Review of Systems Review of Systems: All systems reviewed & are unremarkable except as noted in Subjective Physical Exam Physical Exam: General: well developed, well nourished, ill appearing, no acute distress, comfortable Neck: supple, trachea midline, normal thyroid Lungs: clear to auscultation bilaterally, normal respiratory effort, no accessory muscle use, no distress Heart: regular S1 and S2, no murmur, peripheral pulses normal, capillary refill normal, no edema Abdomen: soft, NT, ND, + BS, no hepatomegaly, normal to percussion Extremities: normal in appearance, no cyanosis, no petechiae, strength is 5/5 bilaterally Neuro: awake, cooperative, moves all extremities, no focal motor deficits, CN II-XII intact, sensation in extremities intact, normal speech Skin: warm, dry, no rash, normal turgor Psych: Awake, alert oriented x 3, euthymic affect Results & Data Results & Data ([facility]) Vital Signs (Past 12 Hours) Vital Signs Temp Pulse Resp BP Pulse Ox 02/26/21 08:00 36.4 C L 67 18 115/78 92 Laboratory Results Laboratory Results - last 24 hr 02/25/21 02/25/21 02/26/21 20:46 08:31 POC Glucose 101 H 157 H 82 02/26/21 12:18 POC Glucose 154 H Medications Administered Current Inpatient Medications Acetaminophen (Acetaminophen 325 Mg Tab) 650 mg PO Q4H PRN PRN Reason: pain or fever Stop: 03/19/21 01:58 EST Last Admin: 02/22/21 11:14 Dose: 650 mg Documented by: Albuterol (Albuterol Hfa 8 Gm Inhaler) 2 puffs INH QIDR PRN PRN Reason: Shortness Of Breath Or Wheezing Stop: 03/21/21 06:59 Last Admin: 02/21/21 15:12 Dose: 2 puffs Documented by: Azithromycin (Azithromycin 250 Mg Tab) [facility] Stop: 02/28/21 11:59 Last Admin: 02/26/21 09:28 Dose: 500 mg Documented by: Benzonatate (Benzonatate 100 Mg Capsule) 100 mg PO TID PRN PRN Reason: Cough Stop: 03/19/21 01:58 EST Bisacodyl (Bisacodyl 10 Mg Supp) 10 mg [place] HS PRN PRN Reason: Constipation Stop: 03/22/21 21:30 Last Admin: 02/23/21 19:56 Dose: 10 mg Documented by: Dextrose (Dextrose 50% 50 Ml Syringe) 25 - 50 ml IV UD PRN; Protocol PRN Reason: Hypoglycemia Protocol Stop: 03/19/21 02:44 Enoxaparin Sodium (Enoxaparin Inj 60 Mg/0.6 Ml Syr) 50 mg SQ BID [facility] Stop: 03/19/21 08:59 Last Admin: 02/26/21 09:28 Dose: 50 mg Documented by: Glucagon (Glucagon For Inj 1 Mg Vial) 1 mg IM UD PRN; Protocol PRN Reason: Hypoglycemia Protocol Stop: 03/19/21 02:44 Glucose (Glucose 40% Gel 15 Gm Tube) 15 - 30 gm PO UD PRN; Protocol PRN Reason: Hypoglycemia Protocol Stop: 03/19/21 02:44 Glucose (Glucose 10 Tabs/Tube) 4 - 8 tabs PO UD PRN; Protocol PRN Reason: Hypoglycemia Protocol Stop: 03/19/21 02:44 Guaifenesin (Guaifenesin 600 Mg Tabcr) 1,200 mg PO Q12 [facility] Stop: 03/19/21 08:59 Last Admin: 02/26/21 09:28 Dose: 1,200 mg Documented by: Furosemide 20 mg/ Syringe 2 mls @ 4 mls/min IV QAM [facility] Stop: 03/23/21 08:59 Last Admin: 02/26/21 09:27 Dose: 4 mls/min Documented by: Ceftriaxone Sodium 2,000 mg/ (Dextrose) 70 mls @ 100 mls/hr IV Q24H [facility]; Protocol Stop: 03/01/21 09:59 Last Infusion: 02/26/21 10:50 Dose: Infused Documented by: Dexamethasone 6 mg/ Syringe 1.5 mls @ 1 mls/min IV QAM [facility] Stop: 03/28/21 08:59 Last Admin: 02/26/21 09:28 Dose: 1 mls/min Documented by: Insulin Aspart (Insulin Aspart 100 Units/Ml 3 Ml Pen) 0 units SC ACHS [facility] Stop: 03/19/21 02:44 Last Admin: 02/26/21 13:41 Dose: 25 units Documented by: Insulin Glargine (Insulin Glargine Solostar 100 Units/Ml 3 Ml Pen) 10 units SC DAILY [facility] Stop: 03/28/21 08:59 Last Admin: 02/26/21 09:26 Dose: 10 units Documented by: Insulin Human NPH (Insulin Human Nph) 40 units SC DAILY [facility]; Protocol Stop: 03/28/21 08:59 Last Admin: 02/26/21 09:26 Dose: 40 units Documented by: Menthol (Cough Drop (Sugar Free) Giovanni 24 Giovanni/1 Box) 1 giovanni BUCCAL NOW PRN PRN Reason: Sore Throat Stop: 03/23/21 08:03 Last Admin: 02/25/21 20:58 Dose: 1 giovanni Documented by: Miscellaneous (Carbohydrates For Hypoglycemia ) 15 - 30 gm PO UD PRN PRN Reason: Hypoglycemia Treatment Stop: 03/19/21 02:44 Miscellaneous Information (Pharmacy Glycemic Mgmt Consult) 1 ea N/A UD PRN PRN Reason: Consult Stop: 03/20/21 00:29 Ondansetron HCl (Ondansetron Inj 2 Mg/Ml 2 Ml Vial) 4 mg IV Q6H PRN PRN Reason: Nausea Stop: 03/19/21 01:58 EST Polyethylene Glycol (Polyethylene (Miralax) 17 Gm Pack) 17 gm PO DAILY [facility] Stop: 03/22/21 11:29 Last Admin: 02/26/21 09:28 Dose: Not Given Documented by: Potassium Chloride (Potassium Chloride Crtab 20 Meq Tabcr) 20 meq PO BID [facility] Stop: 03/22/21 20:59 Last Admin: 02/26/21 09:27 Dose: 20 meq Documented by: Sodium Chloride (Sodium Chloride 0.65% Na Soln 45 Ml ([place])) 2 sprays NA Q1H PRN PRN Reason: Nasal Congestion/irritation Stop: 03/21/21 15:59 Last Admin: 02/19/21 16:22 Dose: 2 sprays Documented by: Triamcinolone Acetonide (Triamcinolone Acet Nasal [place] 10.8ml Btl) 2 sprays [place] DAILY [facility] Stop: 03/21/21 15:59 Last Admin: 02/26/21 09:29 Dose: 2 sprays Documented by: PG Care Time/CCT Total # of Minutes Spent Total Time Spent with Patient: Total time spent is greater than 50% in coordination of care (as documented) at patient's floor/unit and/or counseling patient: Coding Level of Care Code 60394 Subseq Hosp Care Lvl 2 Diagnoses Pneumonia due to COVID-19 virus U07.1; J12.82 Acute respiratory failure with hypoxia J96.01 Diabetes mellitus type 2, uncontrolled E11.65 Rhabdomyolysis due to COVID-19 U07.1; M62.82 Hyponatremia E87.1 Elevated C-reactive protein (CRP) R79.82 Hypokalemia E87.6 DVT prophylaxis Z29.9
[2021-02-27] MEDS ORDERED: INSULIN GLARGINE SOLOSTAR 100 UNITS/ML 3 ML PEN SC SCH (09:00)
[2021-02-27] MEDS: INSULIN ASPART 100 UNITS/ML 3 ML PEN SC SCH ×2 (09:21→13:15)
[2021-02-27] MEDS: dexAMETHasone 6 MG in SYRINGE 0 ML IV SCH (09:22)
[2021-02-27] MEDS: guaiFENesin 600 MG TABCR PO SCH (09:23)
[2021-02-27] MEDS: INSULIN HUMAN NPH SC SCH (09:23)
[2021-02-27] MEDS: ENOXAPARIN INJ 60 MG/0.6 ML SYR SQ SCH (09:23)
[2021-02-27] MEDS: POTASSIUM CHLORIDE CRTAB 20 MEQ TABCR PO SCH (09:24)
[2021-02-27] MEDS: POLYETHYLENE (MIRALAX) 17 GM PACK PO SCH (09:24)
[2021-02-27] MEDS: TRIAMCINOLONE ACET NASAL SPRAY 10.8ML BTL NAE SCH (09:24)
[2021-02-27] MEDS ORDERED: metFORMIN HCL 500 MG TAB PO SCH (10:00)
[2021-02-27] MEDS: cefTRIAXone SODIUM 2,000 MG in DEXTROSE 5% 50 ML IV SCH (10:09)
--- NOTE | 2021-02-27 14:16 | Discharge Summary ---
Date of Service date of admission - February 17, 2021 date of discharge - February 27, 2021 Admission HPI Per Admitting Provider Shine Thomas is a 50yo male with history of hypertension, elevated blood sugar readings (no formal diagnosis of diabetes as of yet, patient states he monitors his sugars at home and sometimes are over 200) as well as uric acid nephrolithiasis presenting with COVID-19 pneumonia. Patient states that he developed symptoms consisting of cough, shortness of breath, fever, nausea, vomiting, body aches and diarrhea approximately 8 days ago. Patient has been monitoring his saturations at home and they have been low in the upper 80s. Upon arrival patient febrile at 39.3, tachycardic at 112, respiratory rate of 20 saturating 90% on room air. Covid test is POSITIVE. ER course: Tylenol, dexamethasone, Toradol, normal saline Principal Diagnosis acute hypoxic respiratory failure 2nd to mod/severe COVID-19 pneumonia uncontrolled type 2 diabetes Discharge Exam Gen: obese, NAD Mouth: MMM Neck: no JVD Heart: RRR, s1 s2, no murmur Lungs: mild bibasilar fine/dry rales, no wheeze, no increased work of breathing Abd: soft NT ND BS+; no HSM Ext: no edema, pulses 2+ b/l Psych: a/o x 3 Discharge Data Allergies Allergy/AdvReac Type Severity Reaction Status Date / Time levofloxacin Allergy Unknown Unknown Verified 02/16/21 22:51 Consultations PT Diabetes Education Procedures Performed ambulatory 2-step oxygen test - * no O2 needed at rest * 4 liters NC O2 needed with activity Ordered Studies Chest X-Ray 02/16/21 22:07 XR chest 1V portable HISTORY: SEPSIS COMPARISON: None. FINDINGS: No pneumothorax. No pleural effusions. The heart is normal in size. Multifocal patchy airspace opacities seen within the lungs most pronounced within the lower lung zones. This is consistent with a viral pneumonia. IMPRESSION: Multifocal bilateral airspace opacities consistent with a viral pneumonia. ACT 112: Negative or not required by law. Electronically signed by: Nawaf Mckeon M.D. 02/17/2021 8:01 AM Hospital Course (1) Pneumonia due to COVID-19 virus: Moderate/severe disease with very high inflammatory markers at time of admission. Completed a 5-day course of Remdesivir. Received IV dexamethasone his entire stay. He never had evidence of bacterial superinfection or CHF. He was never a Tocilizumab or Baricitinib candidate. Patient was diligent about pulmonary toilet and self-proning. Patient clinically improved with the above measures. CRP improved remarkably during the visit (25 -->4). Peak NC O2 requirement was about 6 L. At discharge he will finish a dexamethasone taper over 5 days, continue on NC O2 (4 L with activity), and take xarelto x 30 days for VTE prophylaxis. Given the severity of his COVID illness and O2 requirement at discharge I recommended he establish care with [facility] to follow him during his recovery. (2) Acute respiratory failure with hypoxia: 2nd to #1. no evidence of complicating CHF or bacterial superinfection while here. (3) Diabetes mellitus type 2, uncontrolled: new diagnosis. Hba1c - 9.2%. Received extensive DM education while here. BSGs improved with tapering of steroids and with insulin. At discharge advised - * metformin 500mg BID * lantus 12 units SC once daily * check BSGs twice daily (4) Rhabdomyolysis due to COVID-19: Peak CPK was 2955, improving to <500 on last check. No myalgias or other symptoms from such later in his stay. Creatinine remained stable the entire hospitalization. (5) Hyponatremia: resolved 128 --> 137. was 2nd to HCTZ use at home, poor oral intake, etc. HCTZ was discontinued. (6) Elevated C-reactive protein (CRP): 2nd to #1 peak of 25 improved to 4 on last check (7) Hypokalemia: replaced and resolved (8) DVT prophylaxis: lovenox 50mg BID while hospitalized (~0.5mg/kg BID) given his prolonged hospitalization, severe COVID illness, and high inflammatory markers he was advised to take VTE prophylaxis post-discharge in the form of Xarelto 10mg daily for 30 days. He will take a PPI for GI prophylaxis given his steroid use and Xarelto use. Total Time Total Time Spent Total Time Spent (In Minutes): 45 Discharge Plan Discharge Items Patient Disposition: Home - Self-Care Reason For Visit: COVID-19 Pneumonia Discharge Diagnosis: 1. severe COVID-19 pneumonia. 2. elevated creatine kinase level (muscle test) due to COVID infection - r esolving; last level nearly normal. This issue is called "rhabdomyolysis." See handout. nothing to do for this since it is resolved. 3. type 2 diabetes. 4. low sodium, low potassium - resolved. Activity: As commented below Activity Comment: gradually increase your activities over the next 10-14 days Sexual Activity: Wait until after follow-up appointment Exercise/Sports: Wait until after follow-up appointment Driving/Machine Use: Resume 3 days after discharge Non-emergency contact: Primary Care Provider and General Utility Machine Operator Call non-emergency contact if: you have any medication questions, your symptoms worsen and you have a fever Follow-up/Referrals: [facility] [Provider Group] (first available; follow-up for severe COVID pneumonia. A referral has been sent to the [facility] office. They will reach out to you to schedule your appointment.) Davy Rader, [Physician] - 03/07/21 11:30 am Diet: Carb Consistent or DM2 Addtl Attending Provider Instructions: Mr Thomas, You were hospitalized at [facility] for severe COVID-19 pneumonia. You have progressed nicely during your stay with oxygen, Remdesivir, steroids, and other measures. We also treated you for the possibility of bacterial pneumonia with antibiotics. 1. Blood thinner - anticoagulant - to help prevent blood clots (see section below) - * XARELTO 10mg once daily for 30 days * begin 02/28/21 * to help protect your stomach against irritation from the recent steroids and blood thinner please take - * omeprazole 40mg once daily x 30 days 2. oxygen - again, no need to use oxygen when at rest or sitting. use 4 liters with activity/ambulation. I would also suggest blending in oxygen, 2 liters, to your CPAP unit when you sleep for the next few weeks. check your oxygen levels on your finger with a pulse "oximeter" 2-3 times per day. regardless of whether you are sitting or walking around with your oxygen on your oxygen levels on your finger should be 90% or more. if you see that your oxygen levels are consistently less than 90% when you check it please let your family doctor know right away. 3. Dexamethasone steroid - for your resolving COVID pneumonia -- * start 02/28/21 * take with food * know that steroids raise blood sugars * it is a 5-day "taper"; follow instructions on bottle 4. continue to use your flutter valve and incentive spirometer for another week or so. Continue to prone (tummy time) for the next week or two. 5. diabetes - take metformin 500mg twice daily with meals (breakfast & dinner). most common side effects are stomach upset and loose stools. take lantus insulin 12 units once daily in the mornings starting 02/28/21. The lantus pen that you are actively using does not need refrigeration. check your blood sugar twice a day. Check it every morning, and then at least one time at another point in the day (before bedtime, before dinner, etc). write your numbers down in a notebook and show these to your family doctor at time of follow-up. 6. please continue to wear a mask any time you leave your home. 7. obtain your flu shot in 3-4 weeks. 8. strongly consider a COVID vaccine in 3 months. 9. Be sure to not "over do it" once you are home. You likely have several more weeks of recovery ahead. You may be more tired than normal, have mild shortness of breath with activities, etc. It is important to listen to your body during your recovery and rest when needed. 10. follow-up - see separate section 11. STOP your hydrochlorothiazide blood pressure medication. Your blood pressures have been normal without it. Return to [facility] if - you have fevers over 100 degrees you have consistently low oxygen levels on your finger less than 90% you have worsening shortness of breath or chest pains you have any bleeding issues as noted below because of the blood thinner any other concerns It was our pleasure to care for you and please continue to feel better! -Dr Miller Addtl Assessment Consultant Provider Instructions: Blood thinner (anticoagulant) Medication Instructions: Your blood thinner is called "XARELTO." Anticoagulants thin your blood to help prevent blood clots in your legs and lungs. We know that COVID-19 can increase your chances of getting a blood clot; thus, we are sending you home with 30 days of XARELTO. * You should take your medication exactly as directed. * XARELTO 10mg once daily x 30 days beginning 02/28/21. * Never skip a dose. * Never take a double dose. If you miss a dose, take it as soon as you elliot mber. Call your Primary Care doctor if you experience any of the following: * Swelling or Pain in your leg * Sudden, continuous pain deep in a muscle * Pain that worsens when you are active or when you stand still for a long time * Chest Pain * Sudden Shortness of Breath * Rapid or pounding heart beat * Fainting * Dizziness * Cough with blood or bloody sputum * Sweating more than normal * Bruises * Heavy or uncontrolled bleeding * Blood in your urine, stool or vomit * Black or tarry stools * Heavy nose bleeding Caring for Your Self at Home: * Avoid sitting, standing or lying down for long periods without moving your legs and feet * When traveling by car, stop to get out and move around at least once every 3 hours * On long airplane, train or bus rides, get up and move around when possible * If you can't get up, wiggle your toes and tighten your calves to keep your blood moving Pending Studies at Discharge: No Stand-Alone Forms: My [facility], Smoking Cessation Medications and DC Order Prescriptions: New (DME) Oxygen Home Liters Per Minute See Rx Instructions .ROUTE .MEDSUPPLY Qty: 1 RF: 0 Lantus Solostar U-100 Insulin 100 unit/mL (3 mL) Insulin Pen 12 unit SC QAM Qty: 15 RF: 1 (DME) pen needle, diabetic [Pen Needle] 31 gauge x 5/16" needle See Rx Instructions .Route Qty: 100 RF: 1 Xarelto 10 mg tablet 10 mg PO DAILY 30 Days Qty: 30 RF: 0 metformin 500 mg tablet 500 mg PO BID Qty: 60 RF: 2 dexamethasone 2 mg tablet 2 mg PO .daily as directed Qty: 5 RF: 0 omeprazole 40 mg capsule,delayed release(DR/EC) 40 mg PO DAILY Qty: 30 RF: 0 Continued multivitamin [Daily Multi-Vitamin] tablet 1 tab PO DAILY RF: 0 Discontinued hydrochlorothiazide 25 mg tablet 25 mg PO DAILY Qty: 90 RF: 3 Discharge Orders: Discharge Order (Routine); Ordered 02/27/21 Ordered By: Chidi Saini/Other Patient Handouts: How COVID-19 Spreads, 2019-nCoV, COVID-19 Home Care, Proning COVID-19, High Blood Sugar (Hyperglycemia), Hypoglycemia (Low Blood Sugar), Managing Type 2 Diabetes, Exercise: Why Fitness Matters, Diabetes: Meal Planning, ED Rhabdomyolysis Admission Data Admit Date/Time: 02/17/21 00:44 Attending Provider: Chidi Miller Admit Provider: La Collazo Primary Care Provider: Diana Blackmon Other Providers: La Collazo Other Interventions: Discharge Summary Assessment (RN) Last Done: 02/27/21 14:40 Coding Level of Care Code D/C DAY MANAGEMENT >30 MINS Diagnoses Pneumonia due to COVID-19 virus U07.1; J12.82 Acute respiratory failure with hypoxia J96.01 Diabetes mellitus type 2, uncontrolled E11.65 Rhabdomyolysis due to COVID-19 U07.1; M62.82 Hyponatremia E87.1 Elevated C-reactive protein (CRP) R79.82 Hypokalemia E87.6 DVT prophylaxis Z29.9
== END 2021-02-27 16:00 | disposition home or self-care (01) | DRG 177 ==
LOC: ED 21:03 → 3W 02-17 00:44 → SUATTDRO 02-17 00:44 → 3W 02-17 01:26
DX: U07.1 COVID-19; E11.65 Type 2 diabetes mellitus with hyperglycemia; R94.4 Abnormal results of kidney function studies; Z87.442 Personal history of urinary calculi; J12.82 Pneumonia due to coronavirus disease 2019; Z88.1 Allergy status to other antibiotic agents; E87.1 Hypo-osmolality and hyponatremia; J96.01 Acute respiratory failure with hypoxia; E87.6 Hypokalemia; I10 Essential (primary) hypertension; M62.82 Rhabdomyolysis